=== PATIENT | female | born 1985 | race Caucasian/White ===

== ENCOUNTER 2018-12-30 16:47 | Inpatient (IN) | payer OTHER ==
[~2018-12-30] VITALS: Ht 165.1 cm; Wt 67.1 kg
--- NOTE | 2018-12-30 16:59 | NUR ---
, AMNA CALLED. [phone] IS HIS NUMBER TO CALL.
[2018-12-30 17:05] VITALS: BP 107/86
--- NOTE | 2018-12-30 17:05 | NUR ---
PT BIBA RA 102 From [facility] "Fever/tachycardia/nausea"Trach/vent dependent AC14 TV450 Peep8 28%, PT IS ALERT AND ORIENTED, HOOKED TO CARDIAC MOONITOR, RT AT [facility]ED [facility]IDE [facility], WILL CONTINUE TO MONITOR.
--- NOTE | 2018-12-30 17:08 | NUR ---
PICC LINE NURSE AT BEDSIDE.
[2018-12-30] MEDS ORDERED: BISA10SU8 RC (17:10)
[2018-12-30] MEDS ORDERED: ALBU2.5V38 IH (17:10)
[2018-12-30] MEDS ORDERED: FERR300L GT (17:10)
[2018-12-30] MEDS ORDERED: MIDO5TAB GT (17:10)
[2018-12-30] MEDS ORDERED: VIT500LI GT (17:10)
[2018-12-30] MEDS ORDERED: ONDA4TAB5 GT (17:10)
[2018-12-30] MEDS ORDERED: HYDR-3976 GT (17:10)
[2018-12-30] MEDS ORDERED: MULT-24 GT (17:10)
[2018-12-30] MEDS ORDERED: ACET650S26 GT (17:10)
[2018-12-30] MEDS ORDERED: SENN-168 GT (17:10)
[2018-12-30] MEDS ORDERED: MELA5TAB GT (17:10)
[2018-12-30] MEDS ORDERED: DOCU250C14 GT (17:10)
[2018-12-30] MEDS ORDERED: SERT50TA PO (17:10)
[2018-12-30] MEDS ORDERED: BUDE0.5A IH (17:10)
[2018-12-30] MEDS ORDERED: DULO20CA PO (17:10)
[2018-12-30] MEDS ORDERED: ESOM20CA GT (17:10)
[2018-12-30] MEDS ORDERED: ENOX40DI SQ (17:10)
[2018-12-30] MEDS ORDERED: NA P133E RC (17:10)
[2018-12-30] MEDS ORDERED: LACT-209 GT (17:10)
[2018-12-30] MEDS ORDERED: DULO30CA51 GT (17:10)
[2018-12-30] MEDS ORDERED: POLY17PO4 GT (17:10)
[2018-12-30] MEDS ORDERED: POLY15DR40 EACHEYE (17:10)
[2018-12-30] MEDS ORDERED: METH10TA2 GT (17:10)
[2018-12-30] MEDS ORDERED: LORA1TAB PO (17:10)
[2018-12-30] MEDS ORDERED: ZINC220C8 GT (17:10)
--- NOTE | 2018-12-30 17:10 | NUR ---
LABS DRAWNED AND SENT TO LAB.
[2018-12-30] MEDS ORDERED: ONDANSETRON HCL/PF 4 MG/2 ML VIAL ONE (17:18)
[2018-12-30] MEDS ORDERED: MORPHINE SULFATE INJ 4 MG/ML DISP.SYRIN ONE (17:18)
[2018-12-30 17:21] LABS: BASOPHILS # (AUTO) 0.1 /CMM (0.0-0.2); BASOPHILS % (AUTO) 0.5 % (0.0-2.0); HEMATOCRIT 30 % (33-45); HEMOGLOBIN 9.9 g/dL (11.5-14.8); LYMPHOCYTES # (AUTO) 1.3 /CMM (0.8-4.8); LYMPHOCYTES % (AUTO) 6.4 % (20.0-44.0); MEAN CORPUSCULAR HGB CONC 33 g/dl (31.0-36.0); MEAN CORPUSCULAR VOLUME 81 fL (82-100); MONOCYTES # (AUTO) 2.2 /CMM (0.1-1.30); MONOCYTES % (AUTO) 10.5 % (2.0-12.0); NEUTROPHILS # (AUTO) 17.2 /CMM (1.8-8.9); NEUTROPHILS % (AUTO) 82.6 % (43.0-81.0); PLATELET COUNT (AUTO) 513 /CMM (150-450); RED BLOOD CELL COUNT(AUTO) 3.72 MIL/uL (4.0-5.2); WHITE BLOOD COUNT (AUTO) 20.9 K/uL (4.3-11.0)
--- NOTE | 2018-12-30 17:22 | NUR ---
RT RECD PT FOR SEPSIS TRACHED INTACT AND SECURED WITH SHILEY 6 CUFFED ON THE [facility] VENT WITH VENT ORDERS OF AC 14 450 +8 28% ALARMS ON AND AUDIBLE BAG AND MASK AT [facility] VENT PLUGGED IN RED OUT SX THICK YELLOW SECRETIONS. WILL CONT TO MONITOR Addendum: 12/30/18 at 1728 by ULISSES ALEXANDRE RT Amended: Links added.
--- NOTE | 2018-12-30 17:28 | NUR ---
CRISIS WORKER AT BEDSIDE FOR XRAY.
[2018-12-30] MEDS ORDERED: IV NS 0.9% 1,000 ML BAG IV ONE (17:30)
[2018-12-30] MEDS ORDERED: ONDANSETRON HCL/PF 4 MG/2 ML VIAL IV ONE (17:30)
[2018-12-30] MEDS ORDERED: MORPHINE SULFATE INJ 2 MG/ML DISP.SYRIN IV ONE (17:30)
--- NOTE | 2018-12-30 17:40 | NUR ---
[facility] INTERN AT BEDSIDE FOR EVAL.
[2018-12-30 17:44] LABS: ALANINE AMINOTRANSFERASE 48 U/L (12-78); ALBUMIN 2.7 g/dL (3.4-5.0); ALKALINE PHOSPHATASE 276 U/L (46-116); ASPARTATE AMINOTRANSFERASE 31 U/L (15-37); BILIRUBIN,DIRECT 0.2 mg/dL (0.0-0.2); BILIRUBIN,TOTAL 0.5 mg/dL (0.2-1.0); CALCIUM, SERUM 9.1 mg/dL (8.5-10.1); CARBON DIOXIDE 23 mmol/L (21-32); CHLORIDE 95 mmol/L (98-107); CREATININE 5.8 mg/dL (0.6-1.3); GLUCOSE 111 mg/dL (74-106); SODIUM SERUM 135 mmol/L (136-145); TOTAL PROTEIN, SERUM 7.8 g/dL (6.4-8.2)
[2018-12-30 17:48] LABS: POTASSIUM 6.2 mmol/L (3.5-5.1)
[2018-12-30 17:49] LABS: UREA NITROGEN, BLOOD 109 mg/dL (7-18)
[2018-12-30] MEDS ORDERED: VANCOMYCIN 1 GM in IV D5W 250 ML IV STA (17:49)
[2018-12-30] MEDS ORDERED: CEFEPIME 1 GM in IV D5W 50 ML IV STA (17:49)
--- NOTE | 2018-12-30 17:55 | NUR ---
CERNA CATHETER INSERTED, URINE OUTPUT COLLECTED 1200ML, URINE SPECIMEN AND SENT TO LAB.
[2018-12-30 17:56] LABS: APPEARANCE,URINE Slightly Cloudy (CLEAR); BILIRUBIN,URINE Negative (NEGATIVE); BLOOD, URINE Moderate Ery/uL (NEGATIVE); COLOR,URINE Yellow (YELLOW); KETONES,URINE Negative (NEGATIVE); LEUKOCYTE ESTERASE ,URINE Small (NEGATIVE); NITRITE, URINE Negative (NEGATIVE); PROTEIN,URINE >=300 mg/dl (NEGATIVE); UGLUCOSE Negative (NEGATIVE); UROBILINOGEN,URINE 0.2 EU/dL (0.2)
[2018-12-30 18:00] LABS: PH,URINE >9.0 (5.0-8.0)
[2018-12-30] MEDS ORDERED: ALBUTEROL FS 2.5 MG/3 ML VIAL.NEB NEB ONE (18:00)
[2018-12-30] MEDS ORDERED: SODIUM BICARBONATE SYR 50 MEQ/50 ML DISP.SYRIN IV ONE (18:00)
[2018-12-30] MEDS ORDERED: INSULIN REGULAR, HUMAN 100 UNIT/ML 10 ML VIAL IV ONE (18:00)
[2018-12-30] MEDS ORDERED: CALCIUM CHLORIDE 1,000 MG/10 ML DISP.SYRIN IV ONE (18:00)
[2018-12-30] MEDS ORDERED: DEXTROSE 50%-WATER 50 ML DISP.SYRIN IV ONE (18:00)
[2018-12-30 18:03] LABS: BACTERIA,URINE Moderate /HPF (None Seen); SQUAMOUS EPITHELIAL CELL,UR Few /HPF (None Seen); TRIPLE PHOSPHATE CRYSTAL,UR Few /HPF (None Seen)
[2018-12-30] MEDS ORDERED: SODIUM BICARBONATE SYR 50 MEQ/50 ML DISP.SYRIN ONE (18:27)
[2018-12-30] MEDS ORDERED: DEXTROSE 50%-WATER 50 ML DISP.SYRIN ONE (18:28)
[2018-12-30] MEDS ORDERED: INSULIN REGULAR, HUMAN 100 UNIT/ML 10 ML VIAL ONE (18:28)
[2018-12-30] MEDS ORDERED: CALCIUM CHLORIDE 1,000 MG/10 ML DISP.SYRIN ONE (18:28)
--- NOTE | 2018-12-30 18:30 | NUR ---
PT IS WHEELED TO CT SCAN VIA ALS PROTOCOL.
--- NOTE | 2018-12-30 18:36 | NUR ---
CALLED HOUSE SUP FOR TELE BED
--- NOTE | 2018-12-30 18:41 | NUR ---
RT PT REFUSED BREATHING TX HR 138 DID NOT GIVE TX Addendum: 12/30/18 at 1842 by ULISSES ALEXANDRE RT NO RESP DISTRESS NOTED AND STATED BY PT
[2018-12-30 18:45] VITALS: BP 108/89
--- NOTE | 2018-12-30 18:47 | NUR ---
CALLED ELIANE TO HAVE IMAGE READ.
--- NOTE | 2018-12-30 19:32 | NUR ---
REPORT GIVEN TO STEPHANIA MOLINA FOR ROYA.
--- NOTE | 2018-12-30 20:01 | NUR ---
PT ASSIGNED TO RM [id number].
[2018-12-30 20:13] VITALS: BP 115/70
--- NOTE | 2018-12-30 20:46 | NUR ---
VENT SETTINGS: TV 450 PEEP 8 O2 30% RATE 12
--- NOTE | 2018-12-30 21:16 | NUR ---
REPORT GIVEN TO STEPHANIA DUMONT FOR ROYA
[2018-12-30] MEDS ORDERED: Z GUARD REMEDY 2 OZ OINT TP PRN (21:30)
[2018-12-30 21:40] VITALS: BP 137/91
[2018-12-30 21:47] VITALS: BP 103/85
[2018-12-30] MEDS ORDERED: POLYETHYLENE GLYCOL 3350 17 GM POWD.PACK GT PRN (22:00)
--- NOTE | 2018-12-30 22:00 | NUR ---
GRATING MACHINE OPERATOR NOTES, ALSO PATIENT WITH F/ IN PLACED DRAINING BY GRAVITY NOTED WITH HEMATURIA IN THE BAG, WILL CONTINUE TO MONITOR AND F/U WITH MD FOR FURTHER ORDERS.
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
[2018-12-30 22:21] LABS: IRON, SERUM 14 ug/dl (50-175); TOTAL IRON BINDING CAPACITY 159 ug/dl (250-450)
[2018-12-30] MEDS ORDERED: PIPERACILLIN /TAZOBACTAM 2.25 G VIAL IV ONE (22:22)
[2018-12-30] MEDS: PIPERACILLIN /TAZOBACTAM 2.25 G in IV D5W 50 ML IV SCH (22:27)
[2018-12-30] MEDS: IV NS 0.9% 1,000 ML IV PRN (22:27)
[2018-12-30] MEDS: SERTRALINE HCL 50 MG TABLET PO SCH (22:29)
[2018-12-30] MEDS: HEPARIN SODIUM, PORCINE 5000 UNITS/1 ML VIAL SQ SCH (22:30)
[2018-12-30] MEDS ORDERED: SORBITOL SOLUTION 30 ML ONE (22:52)
[2018-12-30] MEDS: SORBITOL SOLUTION 30 ML PO SCH (22:56)
[2018-12-31] MEDS ORDERED: PIPERACILLIN /TAZOBACTAM 3.375 G in IV D5W 50 ML IV SCH ×2
[2018-12-31 00:37] LABS: CALCIUM, SERUM 9.3 mg/dL (8.5-10.1); CREATININE 3.5 mg/dL (0.6-1.3); POTASSIUM 3.8 mmol/L (3.5-5.1)
--- NOTE | 2018-12-31 00:40 | NUR ---
RN NOTES, ENDORSED PATIENT IN STABLE CONDITION TO STEPHANIA CAST FOR CONTINUATION OF CARE.
--- NOTE | 2018-12-31 00:48 | NUR ---
CONVERTER OPERATOR NOTE RECEIVED MIDSHIFT REPORT FROM STEPHANIA DUMONT. PT IN STABLE CONDITION A&O X4, ABLE TO MOUTH WORDS. CURRENTLY RESTING IN BED.TELE MONITOR READING ST 105. CURRENTLY NPO. CERNA INTACT WITH ADEQUATE URINE DRAINING. ALL CURRENT NEEDS ATTENDED TO. BED LOW, LOCKED, UPPER RAILS UP, AND CALL LIGHT WITHIN REACH. WILL CONT TO MONITOR.
[2018-12-31] MEDS ORDERED: PIPERACILLIN /TAZOBACTAM 2.25 G VIAL IV ONE (04:10)
[2018-12-31] MEDS: IV NS 0.9% 1,000 ML IV PRN ×2 (04:32→17:07)
[2018-12-31] MEDS: PIPERACILLIN /TAZOBACTAM 2.25 G in IV D5W 50 ML IV SCH (04:38)
--- NOTE | 2018-12-31 06:35 | NUR ---
FUNERAL PLANNER NOTE PT IN STABLE CONDITION A&O X4, ABLE TO MOUTH WORDS. CURRENTLY AWAKE IN BED.TELE MONITOR READING ST 105. CURRENTLY NPO. CERNA INTACT WITH ADEQUATE URINE DRAINING. ALL CURRENT NEEDS ATTENDED TO. BED LOW, LOCKED, UPPER RAILS UP, AND CALL LIGHT WITHIN REACH. WILL CONT TO MONITOR AND ENDORSE TO NEXT SHIFT FOR ROYA.
[2018-12-31 06:43] LABS: BASOPHILS % (AUTO) 0.3 % (0.0-2.0); EOSINOPHILS % (AUTO) 0.2 % (0.0-6.0); HEMATOCRIT 23 % (33-45); HEMOGLOBIN 7.6 g/dL (11.5-14.8); LYMPHOCYTES # (AUTO) 1.4 /CMM (0.8-4.8); LYMPHOCYTES % (AUTO) 12.9 % (20.0-44.0); MEAN CORPUSCULAR HGB CONC 34 g/dl (31.0-36.0); MEAN CORPUSCULAR VOLUME 81 fL (82-100); MONOCYTES # (AUTO) 1.4 /CMM (0.1-1.30); MONOCYTES % (AUTO) 12.9 % (2.0-12.0); NEUTROPHILS # (AUTO) 8.1 /CMM (1.8-8.9); NEUTROPHILS % (AUTO) 73.7 % (43.0-81.0); PLATELET COUNT (AUTO) 380 /CMM (150-450); RED BLOOD CELL COUNT(AUTO) 2.81 MIL/uL (4.0-5.2); WHITE BLOOD COUNT (AUTO) 10.9 K/uL (4.3-11.0)
[2018-12-31 06:54] LABS: CALCIUM, SERUM 9.1 mg/dL (8.5-10.1); CREATININE 2.5 mg/dL (0.6-1.3); MAGNESIUM 2.4 mg/dL (1.8-2.4); PHOSPHORUS 5.6 mg/dL (2.5-4.9); POTASSIUM 3.4 mmol/L (3.5-5.1)
--- NOTE | 2018-12-31 07:20 | NUR ---
CERTIFIED MORTICIAN NOTE PT IN STABLE CONDITION A&O X4, ABLE TO MOUTH WORDS. CURRENTLY AWAKE IN BED.TELE MONITOR READING ST 105. CURRENTLY NPO. CERNA INTACT WITH ADEQUATE URINE DRAINING. ALL CURRENT NEEDS ATTENDED TO. BED LOW, LOCKED, UPPER RAILS UP, AND CALL LIGHT WITHIN REACH. WILL CONT TO MONITOR AND ENDORSE TO NEXT SHIFT FOR ROYA. Addendum: 12/31/18 at 1538 by CECI MARLEY RN ERROR
--- NOTE | 2018-12-31 07:25 | NUR ---
MFT OPENING NOTE RECEIVED REPORT FROM PM NURSE.PT IN STABLE CONDITION A&O X4, ABLE TO MOUTH WORDS. TELE MONITOR READING ST 103. NPO.ON IVF NS @125ML/HR. CERNA INTACT WITH YELLOW URINE DRAINING. ALL CURRENT NEEDS ATTENDED TO. BED LOW, LOCKED, UPPER RAILS UPX3, AND CALL LIGHT WITHIN REACH. BED ALARM ON.WILL CONT TO MONITOR .
[2018-12-31 08:00] VITALS: BP 90/52
--- NOTE | 2018-12-31 08:00 | NUR ---
RIGGER SUPERVISOR NOTE PATIENT C/O PAIN.PATIENT TOLD THAT NOT ALLERGIC TO TYLENOL.GAVE TYLENOL FOR PAIN.
[2018-12-31] MEDS ORDERED: FEE PK DOSING 1 MIN EA MC ONE (08:06)
[2018-12-31] MEDS: MULTIVITAMINS,THERAGRAN 1 UDTAB TABLET GT SCH (08:47)
[2018-12-31] MEDS: ACETAMINOPHEN 325 MG TABLET PO PRN ×3 (08:47→22:52)
[2018-12-31] MEDS: HEPARIN SODIUM, PORCINE 5000 UNITS/1 ML VIAL SQ SCH ×2 (08:47→21:12)
[2018-12-31] MEDS: ZINC SULFATE 220 MG CAPSULE GT SCH ×2 (08:47→17:07)
[2018-12-31] MEDS: DULOXETINE HCL 30 MG CAPSULE.DR GT SCH ×2 (08:47→21:13)
[2018-12-31] MEDS: FERROUS SULFATE UDC 300 MG/5 ML UDC GT SCH (08:47)
[2018-12-31] MEDS: SORBITOL SOLUTION 30 ML PO SCH (10:29)
[2018-12-31] MEDS: PIPERACILLIN /TAZOBACTAM 3.375 G in IV D5W 50 ML IV SCH ×3 (11:35→23:03)
[2018-12-31] MEDS: LACTULOSE 10 G/15 ML UDC (PYXIS) PO PRN ×2 (11:35→18:45)
[2018-12-31] MEDS: ONDANSETRON HCL/PF 4 MG/2 ML VIAL IVP PRN ×2 (11:43→22:59)
[2018-12-31 12:00] VITALS: BP 110/62
[2018-12-31] MEDS ORDERED: PIPERACILLIN /TAZOBACTAM 3.375 G in IV D5W 100 ML IV SCH (12:00)
[2018-12-31] MEDS: HYDROMORPHONE 1 MG/1 ML DISP.SYRIN IV PRN ×3 (12:26→21:32)
[2018-12-31] MEDS: VANCOMYCIN 500 MG in IV D5W 100 ML IV SCH (12:26)
[2018-12-31] MEDS: POTASSIUM CL. PREMIX PERIPHER. 50 ML IV SCH ×2 (12:27→13:35)
--- NOTE | 2018-12-31 14:00 | NUR ---
STUCCO LABORER NOTE SEEN BY LILY MELÉNDEZ,UPDATED ABOUT PATIENT CONDITION WITH LABS.GOT NEW ORDERS.PRN LACTULOSE Q6H UNTIL SHE HAS GOOD BM.GOT NEW ORDER FOR PAIN MEDICATIONS.WILL CONTINUE TO MONITOR.
[2018-12-31 16:00] VITALS: BP 111/61
--- NOTE | 2018-12-31 18:20 | NUR ---
RT Patient received trach'd and on [facility] vent w ordered settings. Alarms are set and audible. Vent is plugged into red outlet w [facility] @ hob. Pt trach is secure and patent. Missileman done and pt sx'd w no adverse reactions. No respiratory distress noted t/o shift. Will continue to monitor. Addendum: 12/31/18 at 1820 by LILO OLMOS RT Amended: Links added.
--- NOTE | 2018-12-31 19:00 | NUR ---
FINANCIAL REPORTING ADVISOR CLOSING NOTE PT IN BED.A&O X4, ABLE TO MOUTH WORDS. TELE MONITOR READING ST 110. NPO.ON IVF NS @125ML/HR. CERNA INTACT WITH YELLOW CLOUDY URINE DRAINING. ALL CURRENT NEEDS ATTENDED . BED LOW, LOCKED, UPPER RAILS UPX3, AND CALL LIGHT WITHIN REACH.PATIENT ON CONTACT ISOLATION FOR MRSA NARES. LILY MELÉNDEZ MADE AWARE.TEMP 102.7.LILY MELÉNDEZ MADE AWARE.BED ALARM ON.WILL ENDORSE TO PM NURSE FOR ROYA.
--- NOTE | 2018-12-31 19:10 | NUR ---
SHIPPING & RECEIVING LEAD NOTE RECEIVED PT RESTING IN BED AOX3, MOUTHS WORDS, WITH HOB ELEVATED, TRACH TO VENT ON SETTINGS ORDERED, ON TELE ST, F/C DRAINING TO GRAVITY YELLOW URINE, G TUBE SITE CLAMPED, NPO WILL CONT TO MONITOR FOR BM, SKIN KEPT CLEAN AND DRY, PIERRE MIDLINE PATENT FLUSHING WELL WITH NS AT 125 ML/HR, SITE CLEAN AND DRY, SAFETY MAINTAINED AT ALL TIMES, BED IN LOW, LOCKED POSITION, CALL LIGHT WITHIN REACH, WILL CONTINUE TO MONITOR FOR ANY CHANGES.
[2018-12-31] MEDS: ZOLPIDEM TARTRATE 5 MG TABLET PO PRN (19:57)
[2018-12-31 20:00] VITALS: BP 115/71
[2018-12-31] MEDS: SERTRALINE HCL 50 MG TABLET PO SCH (21:13)
[2018-12-31] MEDS: MUPIROCIN OINT 2% 22 GM TUBE SCH (21:14)
--- NOTE | 2018-12-31 21:42 | NUR ---
RECEIVED PT TRACHED SHLY 6, AWAKE AND ALERT. NO RESP DISTRESS. VENT SETTINGS AC 14, 450, 30%, +8. VENT ALARMS SET AND AUDIBLE. AMBU BAG AT BEDSIDE. VENT PLUGGED INTO RED OUTLET. WILL CONTINUE TO MONITOR. Addendum: 12/31/18 at 2145 by VAZQUEZ TANG RT Amended: Links added.
[2019-01-01] VITALS (7 sets, daily range): BP systolic 110–145; BP diastolic 71–85
[2019-01-01] MEDS: HYDROMORPHONE 1 MG/1 ML DISP.SYRIN IV PRN ×5 (01:50→20:59)
[2019-01-01] MEDS: IV NS 0.9% 1,000 ML IV PRN (01:58)
[2019-01-01] MEDS: PIPERACILLIN /TAZOBACTAM 3.375 G in IV D5W 50 ML IV SCH ×4 (05:01→23:25)
[2019-01-01] MEDS: LACTULOSE 10 G/15 ML UDC (PYXIS) PO PRN (05:01)
[2019-01-01 06:02] LABS: CALCIUM, SERUM 8.9 mg/dL (8.5-10.1); CREATININE 0.8 mg/dL (0.6-1.3); POTASSIUM 3.2 mmol/L (3.5-5.1)
[2019-01-01] MEDS: VANCOMYCIN 500 MG in IV D5W 100 ML IV SCH ×2 (06:15→18:02)
--- NOTE | 2019-01-01 07:30 | NUR ---
RN NOTED RECEIVED PATIENT IN BED, AWAKE, ABLE TO MAKE NEEDS KNOWN BY MOUTHING WORDS. VENT TO TRACH, NO SOB AND TOLERATES VENT SETTING ORDERED, SATURATING 98%. HOB ELEVATED. SINUS RHYTHM ON THE MONITOR WITH HR ON THE 90'S. NO COMPLAINTS OF PAIN BUT WITH COMPLAINTS OF NAUSEA- WILL ADMINISTER DUE MEDICATION. ABDOMEN ON SOFT AND NONTENDER. IVC ACCES ON THE (R) UA: MIDLINE-INTACT AND PATENT WITH DRESSING IN PLACE,CLEAN AND DRY. WITH ONGOING IVF OF NS AT 125ML/HR. GT IN PLACE, PLACEMENT CONFIRMED THROUGH AUSCULTATION, CLAMPED AT THIS TIME. SITE CLEAN AND DRY. CERNA CATHETER IN PLACED DRAINING VIA GRAVITY TO YELLOW URINE, SEDIMENTS NOTED. HOB KEPT ELEVATED, SAFETY MEASURES OBSERVED AND MAINTAINED. BED IN LOW AND LOCKED POSITIONED. CALL LIGHT WITHIN REACH. ISOLATION PRECAUTION IMPLEMENTED.WILL CONTINUE TO MONITOR AND ANTICIPATE NEEDS.
--- NOTE | 2019-01-01 08:41 | NUR ---
WOUND CARE CONSULT: PT PRESENTS WITH LEFT POSTERIOR ANKLE INTACT DEEP TISSUE INJURY (BROWN COLOR), PRESENT ON ADMISSION. PT REFUSED TO BE TURNED FOR FULL SKIN ASSESSMENT. PER ADMISSION PHOTO DOCUMENTATION AND SURGEON, PT HAS STAGE 4 SACRAL ULCER, PRESENT ON ADMISSION. ORDERS RECEIVED FROM DR GIOVANNI LOPEZ FOR WOUND CARE AND DISCUSSED WITH NURSING STAFF. WILL SEE PRN. ACOSTA IN AGREEMENT WITH PLAN OF CARE. PT ON ELIZABETH ISOFLEX LOW AIRLOSS BED. NO G TUBE FEEDINGS YET DUE TO PT NAUSEA AND CONSTIPATION ISSUES PER NURSING STAFF. RECOMMEND DIETARY FOLLOW UP. Addendum: 01/01/19 at 0843 by MIKEL CLARK WNDNU Amended: Links added.
[2019-01-01] MEDS: ONDANSETRON HCL/PF 4 MG/2 ML VIAL IVP PRN (08:53)
[2019-01-01] MEDS: FERROUS SULFATE UDC 300 MG/5 ML UDC GT SCH (09:07)
[2019-01-01] MEDS: ZINC SULFATE 220 MG CAPSULE GT SCH ×2 (09:07→16:55)
[2019-01-01] MEDS: DULOXETINE HCL 30 MG CAPSULE.DR GT SCH ×2 (09:07→20:59)
[2019-01-01] MEDS: MULTIVITAMINS,THERAGRAN 1 UDTAB TABLET GT SCH (09:07)
[2019-01-01] MEDS: MUPIROCIN OINT 2% 22 GM TUBE SCH ×2 (09:08→21:00)
[2019-01-01] MEDS: SORBITOL SOLUTION 30 ML PO SCH (09:08)
[2019-01-01] MEDS: DAKINS QUARTER STRENGTH (0.125%) 480 ML BOTTLE TOP SCH (09:09)
[2019-01-01] MEDS: HEPARIN SODIUM, PORCINE 5000 UNITS/1 ML VIAL SQ SCH ×2 (09:10→20:59)
[2019-01-01] MEDS ORDERED: POTASSIUM CHLORIDE 20 MEQ TAB.PRT.SR PO SCH (11:00)
[2019-01-01] MEDS: POTASSIUM CL. PREMIX PERIPHER. 50 ML IV SCH ×4 (11:33→15:31)
[2019-01-01] MEDS ORDERED: IV 1/2NS 1000 ML 1,000 ML IV PRN (13:00)
[2019-01-01] MEDS ORDERED: SILVER NITRATE APPLICATOR 1 EA BOX TP ONE (16:30)
[2019-01-01] MEDS: LACTOBACILLUS RHAMNOSUS GG 1 EACH CAP.SPRINK PO SCH (16:55)
--- NOTE | 2019-01-01 17:40 | NUR ---
RN NOTES S/P WOUND DEBRIDEMENT, SITE WITH MILD BLEEDING. DRESSING APPLIED. WILL MONITOR PATIENT ACCCORDINGLY
--- NOTE | 2019-01-01 19:10 | NUR ---
RN NOTES ENDORSED PATIENT FOR CONTINUITY OF CARE. NO ACUTE CHANGES WITHIN THE SHIFT. NOT ON ANY FORM OF DISTRESS. ALL NURSING NEEDS ATTENDED. SAFETY MEASURES IN PLACE AT ALL TIMES. CALL LIGHT WITHIN REACH. ISOLATION PRECAUTION IMPLEMENTED AT ALL TIMES
--- NOTE | 2019-01-01 19:10 | NUR ---
LOGISTICS ANALYTICS MANAGER NOTE RECEIVED PT RESTING WITH HEAD OF THE BED ELEVATED, AOX3, MOUTHS WORDS, TRACH TO VENT ON SETTINGS ORDERED, ON TELE ST, NO S/SX OF RESPIRATORY OR CARDIAC DISTRESS, F/C DRAINING TO GRAVITY CLOUDY YELLOW URINE, G TUBE SITE CLAMPED, NPO WILL CONT TO MONITOR FOR BM, SKIN KEPT CLEAN AND DRY, PIERRE MIDLINE PATENT FLUSHING WELL WITH 1/2NS AT 125 ML/HR, SITE CLEAN AND DRY, SAFETY MAINTAINED AT ALL TIMES, BED IN LOW, LOCKED POSITION, CALL LIGHT WITHIN REACH, WILL CONTINUE TO MONITOR FOR ANY CHANGES.
[2019-01-01] MEDS: SERTRALINE HCL 50 MG TABLET PO SCH (21:00)
[2019-01-02] VITALS (8 sets, daily range): BP systolic 122–146; BP diastolic 79–93
[2019-01-02] MEDS: HYDROMORPHONE 1 MG/1 ML DISP.SYRIN IV PRN ×5 (01:05→20:56)
[2019-01-02] MEDS: PIPERACILLIN /TAZOBACTAM 3.375 G in IV D5W 50 ML IV SCH ×3 (05:05→17:03)
[2019-01-02] MEDS: VANCOMYCIN 500 MG in IV D5W 100 ML IV SCH (06:13)
[2019-01-02 06:40] LABS: CALCIUM, SERUM 8.9 mg/dL (8.5-10.1); CREATININE 0.5 mg/dL (0.6-1.3); POTASSIUM 3.3 mmol/L (3.5-5.1)
--- NOTE | 2019-01-02 07:30 | NUR ---
RN NOTED RECEIVED PATIENT IN BED, ASLEEP, AROUSES TO VERBAL STIMULI, ABLE TO MAKE NEEDS KNOWN BY MOUTHING WORDS.TRACH TO VENT, NO SOB AND TOLERATES VENT SETTING ORDERED, SATURATING 98%. HOB ELEVATED. SINUS RHYTHM ON THE MONITOR WITH HR ON THE 90'S. NO SIGNS/ INDICATION OF PAIN NOTED AT THIS TIME. ABDOMEN ON SOFT AND NONTENDER. IV ACCES ON THE (R) UA: MIDLINE-INTACT AND PATENT WITH DRESSING IN PLACE,CLEAN AND DRY. WITH ONGOING IVF OF 1/2 NS AT 125ML/HR. GT IN PLACE, PLACEMENT CONFIRMED THROUGH AUSCULTATION, CLAMPED AT THIS TIME. SITE CLEAN AND DRY. CERNA CATHETER IN PLACED DRAINING VIA GRAVITY TO YELLOW URINE, SEDIMENTS NOTED. HOB KEPT ELEVATED, SAFETY MEASURES OBSERVED AND MAINTAINED. BED IN LOW AND LOCKED POSITIONED. CALL LIGHT WITHIN REACH. ISOLATION PRECAUTION IMPLEMENTED.WILL CONTINUE TO MONITOR AND ANTICIPATE NEEDS.
[2019-01-02] MEDS: SORBITOL SOLUTION 30 ML PO SCH (08:37)
[2019-01-02] MEDS: HEPARIN SODIUM, PORCINE 5000 UNITS/1 ML VIAL SQ SCH ×2 (08:37→20:57)
[2019-01-02] MEDS: DULOXETINE HCL 30 MG CAPSULE.DR GT SCH ×2 (08:38→20:55)
[2019-01-02] MEDS: MULTIVITAMINS,THERAGRAN 1 UDTAB TABLET GT SCH (08:38)
[2019-01-02] MEDS: ZINC SULFATE 220 MG CAPSULE GT SCH ×2 (08:38→17:03)
[2019-01-02] MEDS: FERROUS SULFATE UDC 300 MG/5 ML UDC GT SCH (08:38)
[2019-01-02] MEDS: LACTOBACILLUS RHAMNOSUS GG 1 EACH CAP.SPRINK PO SCH ×2 (08:39→17:03)
[2019-01-02] MEDS: MUPIROCIN OINT 2% 22 GM TUBE SCH ×2 (08:42→20:58)
[2019-01-02] MEDS ORDERED: JEVITY 1.2 CAL 1,000 ML BOTTLE GT PRN (09:00)
[2019-01-02] MEDS: DAKINS QUARTER STRENGTH (0.125%) 480 ML BOTTLE TOP SCH (09:13)
--- NOTE | 2019-01-02 11:26 | NUR ---
RN NOTES INFORMED DR. DAVILA ON A.) PATIENT LATEST SODIUM AT 152 AND IF HE IS CONTINUING THE 1/2 NS AT 125CC/HR AND B.) POTASSIUM LEVEL AT 3.3 AND IF HE'S ORDERING REPLACEMENT. AWAITING RESPONSE
[2019-01-02] MEDS ORDERED: POTASSIUM CHLORIDE 20 MEQ POWDER PACKET GT SCH (11:30)
--- NOTE | 2019-01-02 12:00 | NUR ---
RN NOTES PATIENT FEVERISH AT THIS TIME, REFUSE COOLING MEASURES AND CLAIMS TO BE COLD.
--- NOTE | 2019-01-02 12:22 | NUR ---
RN NOTES OBTAINED DIET RECOMMENDATIONS FROM DR ROSS INFORMED AND PERMITTED SUCH ORDERS. ORDER NOTED AND CARRIED OUT
--- NOTE | 2019-01-02 18:16 | NUR ---
RT RECD PT TRACH'D INTACT & SECURED ON MECH VENT SUDARSHAN ORDERED SETTINGS ALARMS ON & AUDIBLE BAG AND MASK AT HOB SX THICK PALE YELLOW SECRETIONS NO SOB WILL CONT TO MONITOR
[2019-01-02] MEDS ORDERED: VANCOMYCIN 0.75 GM in IV D5W 250 ML IV SCH (20:00)
--- NOTE | 2019-01-02 20:00 | NUR ---
TIFFANI RN NOTE RECEIVED PATIENT IN BED, AWAKE, ABLE TO MAKE NEEDS KNOWN BY MOUTHING WORDS. VENT TO TRACH, NO SOB AND TOLERATES VENT SETTING WELL, SATURATING 99%. HOB ELEVATED. SINUS RHYTHM ON THE MONITOR WITH HR 90'S. PATIENT COMPLAINTS OF PAIN 10 WILL ADMINISTER DUE MEDICATION. ABDOMEN SOFT AND NONTENDER. IVC ACCES ON THE (R) UA: MIDLINE-INTACT AND PATENT WITH DRESSING IN PLACE,CLEAN AND DRY. GT IN PLACE, PLACEMENT CONFIRMED BY AUSCULTATION WITH GTF ORDERED. SITE CLEAN AND DRY. CERNA CATHETER IN PLACED DRAINING VIA GRAVITY TO DARK YELLOW URINE, SEDIMENTS NOTED. HOB KEPT ELEVATED, SAFETY MEASURES OBSERVED AND MAINTAINED. BED IN LOW AND LOCKED POSITIONED. CALL LIGHT WITHIN REACH. ISOLATION PRECAUTION IMPLEMENTED.WILL CONTINUE TO MONITOR AND ANTICIPATE NEEDS.
[2019-01-02] MEDS: VANCOMYCIN 1 GM in IV D5W 250 ML IV SCH (20:54)
[2019-01-02] MEDS: ACETAMINOPHEN 325 MG TABLET PO PRN (20:55)
[2019-01-02] MEDS ORDERED: MUPIROCIN OINT 2% 22 GM TUBE SCH (21:00)
[2019-01-02] MEDS: SERTRALINE HCL 50 MG TABLET PO SCH (22:30)
[2019-01-03] VITALS: BP 136/94
[2019-01-03] MEDS: PIPERACILLIN /TAZOBACTAM 3.375 G in IV D5W 50 ML IV SCH ×4 (00:40→17:45)
[2019-01-03 04:00] VITALS: BP 144/95
[2019-01-03] MEDS: JEVITY 1.2 CAL 1,000 ML BOTTLE GT PRN (04:28)
[2019-01-03] MEDS: HYDROMORPHONE 1 MG/1 ML DISP.SYRIN IV PRN ×3 (05:33→17:45)
[2019-01-03 07:17] LABS: BASOPHILS % (AUTO) 0.4 % (0.0-2.0); EOSINOPHILS % (AUTO) 1.1 % (0.0-6.0); HEMATOCRIT 24 % (33-45); HEMOGLOBIN 7.8 g/dL (11.5-14.8); LYMPHOCYTES # (AUTO) 1.9 /CMM (0.8-4.8); LYMPHOCYTES % (AUTO) 16.6 % (20.0-44.0); MEAN CORPUSCULAR HGB CONC 33 g/dl (31.0-36.0); MEAN CORPUSCULAR VOLUME 81 fL (82-100); MONOCYTES # (AUTO) 0.8 /CMM (0.1-1.30); MONOCYTES % (AUTO) 7.6 % (2.0-12.0); NEUTROPHILS # (AUTO) 8.3 /CMM (1.8-8.9); NEUTROPHILS % (AUTO) 74.3 % (43.0-81.0); PLATELET COUNT (AUTO) 430 /CMM (150-450); RED BLOOD CELL COUNT(AUTO) 2.96 MIL/uL (4.0-5.2); WHITE BLOOD COUNT (AUTO) 11.2 K/uL (4.3-11.0)
[2019-01-03 07:45] LABS: ALBUMIN 2.2 g/dL (3.4-5.0); BILIRUBIN,TOTAL 0.3 mg/dL (0.2-1.0); CALCIUM, SERUM 8.1 mg/dL (8.5-10.1); CREATININE 0.4 mg/dL (0.6-1.3); MAGNESIUM 1.4 mg/dL (1.8-2.4); PHOSPHORUS 1.7 mg/dL (2.5-4.9); TOTAL PROTEIN, SERUM 6.1 g/dL (6.4-8.2)
--- NOTE | 2019-01-03 07:45 | NUR ---
TIFFANI RN NOTE RECEIVED PATIENT IN BED, AWAKE, ABLE TO MAKE NEEDS KNOWN BY MOUTHING WORDS WITH TRACH. TO VENT SETTING , NO SOB AND TOLERATES VENT SETTING WELL, SATURATING 99%. HOB ELEVATED. SINUS RHYTHM ON THE MONITOR WITH SR HR 71 . ABDOMEN SOFT AND NONTENDER. IVC ACCES ON THE (R) UA: MIDLINE-INTACT AND PATENT WITH DRESSING IN PLACE,CLEAN AND DRY. GT IN PLACE, PLACEMENT CONFIRMED BY AUSCULTATION WITH GTF ORDERED. NO RESIDUAL NOTED SITE CLEAN AND DRY. CERNA CATHETER IN PLACED DRAINING VIA GRAVITY WITH YELLOW URINE, SEDIMENTS NOTED. HOB KEPT ELEVATED, SAFETY MEASURES OBSERVED AND MAINTAINED. BED IN LOW AND LOCKED POSITIONED. CALL LIGHT WITHIN REACH. ISOLATION PRECAUTION IMPLEMENTED.WILL CONTINUE TO MONITOR AND ANTICIPATE NEEDS.
[2019-01-03 07:50] LABS: POTASSIUM 2.7 mmol/L (3.5-5.1)
[2019-01-03 08:00] VITALS: BP 136/94
[2019-01-03] MEDS: VANCOMYCIN 1 GM in IV D5W 250 ML IV SCH ×2 (08:11→20:59)
[2019-01-03] MEDS: FERROUS SULFATE UDC 300 MG/5 ML UDC GT SCH (08:20)
[2019-01-03] MEDS: DULOXETINE HCL 30 MG CAPSULE.DR GT SCH ×2 (08:20→20:59)
[2019-01-03] MEDS: MULTIVITAMINS,THERAGRAN 1 UDTAB TABLET GT SCH (08:20)
[2019-01-03] MEDS: LACTOBACILLUS RHAMNOSUS GG 1 EACH CAP.SPRINK PO SCH ×2 (08:20→17:44)
[2019-01-03] MEDS: ZINC SULFATE 220 MG CAPSULE GT SCH ×2 (08:20→17:44)
[2019-01-03] MEDS: SORBITOL SOLUTION 30 ML PO SCH (08:21)
[2019-01-03] MEDS: HEPARIN SODIUM, PORCINE 5000 UNITS/1 ML VIAL SQ SCH ×2 (08:22→21:45)
[2019-01-03] MEDS: DAKINS QUARTER STRENGTH (0.125%) 480 ML BOTTLE TOP SCH (08:23)
[2019-01-03] MEDS: MUPIROCIN OINT 2% 22 GM TUBE SCH ×2 (08:32→09:00)
[2019-01-03] MEDS ORDERED: POTASSIUM CHLORIDE 20 MEQ TAB.PRT.SR PO ONE (09:00)
[2019-01-03] MEDS: Magnesium 1GM/D5W 100ML PREMIX 100 ML IV SCH ×2 (09:17→10:18)
--- NOTE | 2019-01-03 09:23 | NUR ---
PLODDING MACHINE OPERATOR NOTE SPOKE WITH DR BARRERA OK TO GIVE SORBITOL VIA G TUBE, ALSO DR BARRERA AWARE THAT K 2.7
[2019-01-03 09:55] LABS: BAND % (MANUAL) 2 % (0.0-5.0); LYMPHOCYTES % (MANUAL) 21 % (16-48); MONOCYTES % (MANUAL) 10 % (0-11.0); MYELOCYTES % 3 % (0-0); NEUTROPHILS % (MANUAL) 64 (42-76)
[2019-01-03] MEDS ORDERED: POTASSIUM PHOSPHATE MM 5 MMOL in IV D5W 100 ML IV ONE (10:00)
[2019-01-03 12:00] VITALS: BP 124/92
--- NOTE | 2019-01-03 12:30 | NUR ---
CAR AND YARD SUPERVISOR NOTE OFFERED TO BE CLEAN, PATIENT STATED FEEL COMFORTABLE FOR NOW ,NO NEED AT THIS TIME, TURIN REPOSITION DONE Q2 HOUR
--- NOTE | 2019-01-03 14:53 | NUR ---
TELE R N NOTE OFFERED TO CLEAN ,STILL REFUSED, FACE CLEANED, ORAL CARE DONE ,TRACH SUCTION DONE REPOSITION DONE WILL CONT TO MONITOR CLOSELY
--- NOTE | 2019-01-03 14:55 | NUR ---
TELERN NOTE ENDORSED CARE TO KOMAL CAT
[2019-01-03 16:00] VITALS: BP 124/90
--- NOTE | 2019-01-03 18:55 | NUR ---
RN CLOSING NOTES PATIENT IN BED SLEEPING COMFORTABLY. EASILY AROUSABLE. PT IS ALERT AND ORIENTED X3. ABLE TO MAKE NEEDS KNOWN. PATIENT COMPLAINED OF PAIN OF 10/10. DILAUDID WAS GIVEN ORDERED. RESPIRATION EVEN AND UNLABORED. SKIN IS DRY WARM TO TOUCH. TX WAS DONE WELL ON THE STAGE 4 WOUND ON SACRAL AREA. MID LINE ON RIGHT UPPER ARM INTACT AND PATENT. FLUSHING WELL. GT IS INTACT AND FLUSHING WELL. NO RESIDUALS. HOB ELEVATED AT ALL TIMES. ALL NEEDS ANTICIPATED. KEPT CLEAN AND DRY. CALL LIGHT WITHIN REACHED. BED LOCKED AND IN LOW POSITION. WILL CONTINUE TO MONITOR. ENDORSED TO PM NURSE FOR ROYA.
--- NOTE | 2019-01-03 19:17 | NUR ---
RT NOTE: RECEIVED TRACH PT ON [facility] VENT ON NOTED SETTINGS PER MD ORDERS. TRACH IS PATENT AND SECURED. RECRUITING OPERATIONS CONSULTANT DONE. SX DONE PRN. VENT PLUGGED INTO RED OUTLET. ALARMS ON AND AUDIBLE. LINH THOMAS @ BEDSIDE. NO RESP DISTRESS AT THIS TIME. WILL CONT TO MONITOR PT. Addendum: 01/04/19 at 0553 by GEO GAMINO RT Amended: Links added.
[2019-01-03 20:00] VITALS: BP 122/85
--- NOTE | 2019-01-03 20:29 | NUR ---
SAFETY FIRE BOSS INITIAL NOTE RECEIVED PATIENT IN BED, AWAKE, ABLE TO MAKE NEEDS KNOWN BY MOUTHING WORDS WITH TRACH. TO VENT SETTING , NO SOB AND TOLERATES VENT SETTING WELL, SATURATING 99%. HOB ELEVATED. SINUS RHYTHM ON THE MONITOR WITH SR HR 65 . ABDOMEN SOFT AND NONTENDER. IVC ACCES ON THE (R) UA: MIDLINE-INTACT AND PATENT WITH DRESSING IN PLACE,CLEAN AND DRY. GT IN PLACE, PLACEMENT CONFIRMED BY AUSCULTATION WITH GTF ORDERED. NO RESIDUAL NOTED SITE CLEAN AND DRY. CERNA CATHETER IN PLACED DRAINING VIA GRAVITY WITH YELLOW URINE, SEDIMENTS NOTED. HOB KEPT
[2019-01-03] MEDS: SERTRALINE HCL 50 MG TABLET PO SCH (21:44)
[2019-01-03] MEDS: ZOLPIDEM TARTRATE 5 MG TABLET PO PRN (21:52)
[2019-01-03] MEDS: CEFEPIME 1 GM in IV D5W 50 ML IV SCH (22:56)
[2019-01-04] VITALS (7 sets, daily range): BP systolic 115–145; BP diastolic 83–99
[2019-01-04] MEDS: JEVITY 1.2 CAL 1,000 ML BOTTLE GT PRN ×2 (04:45→21:33)
[2019-01-04] MEDS: HYDROMORPHONE 1 MG/1 ML DISP.SYRIN IV PRN ×4 (04:45→20:52)
--- NOTE | 2019-01-04 06:10 | NUR ---
TRUCK BRACER CLOSING NOTE ENDORSED PATIENT IN BED, AWAKE, ABLE TO MAKE NEEDS KNOWN BY MOUTHING WORDS WITH TRACH. TO VENT SETTING , NO SOB AND TOLERATES VENT SETTING WELL, SATURATING 99%. HOB ELEVATED. SINUS RHYTHM ON THE MONITOR WITH SR HR 87 . ABDOMEN SOFT AND NONTENDER. IVC ACCES ON THE (R) UA: MIDLINE-INTACT AND PATENT WITH DRESSING IN PLACE,CLEAN AND DRY. GT IN PLACE, PLACEMENT CONFIRMED BY AUSCULTATION WITH GTF ORDERED. NO RESIDUAL NOTED SITE CLEAN AND DRY, PT REFUSED TO BE CHANGED. CERNA CATHETER IN PLACED DRAINING VIA GRAVITY WITH YELLOW URINE, SEDIMENTS NOTED. HOB KEPT
[2019-01-04 06:48] LABS: CREATININE 0.4 mg/dL (0.6-1.3); POTASSIUM 3.5 mmol/L (3.5-5.1)
--- NOTE | 2019-01-04 07:50 | NUR ---
DARKROOM WORKER: pt.is A/Ox3, rest, can communicate, no pain now, no SOB, O2sat. over 95%, FiO2 305, peep 8, on AC mode, no SOB, suctioned well x2, SR, SBP over 90, will reach goal GTF 65ml/h, residual WNL, keep HOB over 40, had BM yesterday by comp.data, surgreon consult, debridement done
[2019-01-04] MEDS: FERROUS SULFATE UDC 300 MG/5 ML UDC GT SCH (09:03)
[2019-01-04] MEDS: DULOXETINE HCL 30 MG CAPSULE.DR GT SCH ×2 (09:03→20:51)
[2019-01-04] MEDS: MULTIVITAMINS,THERAGRAN 1 UDTAB TABLET GT SCH (09:03)
[2019-01-04] MEDS: ZINC SULFATE 220 MG CAPSULE GT SCH ×2 (09:03→17:03)
[2019-01-04] MEDS: LACTOBACILLUS RHAMNOSUS GG 1 EACH CAP.SPRINK PO SCH ×2 (09:03→17:03)
[2019-01-04] MEDS: HEPARIN SODIUM, PORCINE 5000 UNITS/1 ML VIAL SQ SCH ×2 (09:03→20:51)
[2019-01-04] MEDS: VANCOMYCIN 1 GM in IV D5W 250 ML IV SCH ×2 (09:04→20:32)
[2019-01-04] MEDS: DAKINS QUARTER STRENGTH (0.125%) 480 ML BOTTLE TOP SCH (09:05)
[2019-01-04] MEDS: SORBITOL SOLUTION 30 ML GT SCH (09:05)
[2019-01-04] MEDS: MUPIROCIN OINT 2% 22 GM TUBE SCH ×2 (09:06→21:32)
[2019-01-04] MEDS: CEFEPIME 1 GM in IV D5W 50 ML IV SCH ×2 (09:10→22:50)
[2019-01-04 10:27] LABS: ALBUMIN 2.4 g/dL (3.4-5.0); BILIRUBIN,TOTAL 0.2 mg/dL (0.2-1.0); CALCIUM, SERUM 8.3 mg/dL (8.5-10.1); CREATININE 0.4 mg/dL (0.6-1.3); MAGNESIUM 1.7 mg/dL (1.8-2.4); PHOSPHORUS 2.2 mg/dL (2.5-4.9); POTASSIUM 3.7 mmol/L (3.5-5.1); TOTAL PROTEIN, SERUM 6.2 g/dL (6.4-8.2)
[2019-01-04 10:35] LABS: BASOPHILS # (AUTO) 0.1 /CMM (0.0-0.2); BASOPHILS % (AUTO) 0.7 % (0.0-2.0); EOSINOPHILS % (AUTO) 4.2 % (0.0-6.0); HEMATOCRIT 26 % (33-45); HEMOGLOBIN 8.3 g/dL (11.5-14.8); LYMPHOCYTES # (AUTO) 2.8 /CMM (0.8-4.8); LYMPHOCYTES % (AUTO) 21.7 % (20.0-44.0); MEAN CORPUSCULAR HGB CONC 32 g/dl (31.0-36.0); MEAN CORPUSCULAR VOLUME 83 fL (82-100); MONOCYTES # (AUTO) 0.9 /CMM (0.1-1.30); MONOCYTES % (AUTO) 6.9 % (2.0-12.0); NEUTROPHILS # (AUTO) 8.7 /CMM (1.8-8.9); NEUTROPHILS % (AUTO) 66.5 % (43.0-81.0); PLATELET COUNT (AUTO) 514 /CMM (150-450); RED BLOOD CELL COUNT(AUTO) 3.18 MIL/uL (4.0-5.2)
--- NOTE | 2019-01-04 10:47 | NUR ---
SANITARIAN AIDE: pt.c/o shoulders, back pain 03/30, Dilaudid in EMAR+, suctioned well, repositioned q2h
[2019-01-04] MEDS ORDERED: K PHOS NEUTRAL 250 MG TABLET PO ONE (12:00)
[2019-01-04] MEDS ORDERED: K PHOS NEUTRAL 250 MG TABLET GT ONE (12:00)
[2019-01-04 12:04] LABS: BAND % (MANUAL) 4 % (0.0-5.0); EOSINOPHILS % (MANUAL) 4 % (0-4); LYMPHOCYTES % (MANUAL) 23 % (16-48); MONOCYTES % (MANUAL) 7 % (0-11.0); MYELOCYTES % 2 % (0-0); NEUTROPHILS % (MANUAL) 57 (42-76); REACTIVE LYMPHOCYTES 3 % (0-0)
--- NOTE | 2019-01-04 14:00 | NUR ---
RN TIFFANI: pt is rest, no c/o now, no pain, VSS, suctioned well, turned q2h, O2sat. over 96%, GTF residual WNL, pt. called with bad phone connection, call was unable to hear his voice well, said: can hear nurse and got report re pt.current condition, VS, POC, orders, recommended to call back, pt.is notified re call
--- NOTE | 2019-01-04 16:47 | NUR ---
UTILITY MANAGER: pt.is A/Ox3, no c/o now, no pain, O2sat. over 96%, suctioned q1-2hrs, SR, SBP over 90 below 150, GTF residual WNL, BMx1, all PM,skin,wound care done, portable vent from SNF is in room, RT is aware, sent message for case filler
--- NOTE | 2019-01-04 18:12 | NUR ---
RT NOTE PT REMAINS MECHANICALLY VENTILATED VIA SHILEY 6 CUFFED TRACHEOSTOMY TUBE. CUFF INFLATED. TRACH TUBE MIDLINE AND SECURE. VENTILATOR SETTINGS PRESCRIBED. ALARMS SET PER PROTOCOL AND AUDIBLE. VENT PLUGGED IN TO RED OUTLET. AMBU BAG AT BED SIDE. NO DISTRESS NOTED. PT AWAKE AND ALERT. Addendum: 01/04/19 at 1813 by JESICA RECINOS RT Amended: Links added.
--- NOTE | 2019-01-04 19:54 | NUR ---
COMMUNITY REPRESENTATIVE INITIAL NOTE RECEIVED PATIENT IN BED, AWAKE, ABLE TO MAKE NEEDS KNOWN BY MOUTHING WORDS WITH TRACH. TO VENT SETTING , NO SOB AND TOLERATES VENT SETTING WELL, SATURATING 99%. HOB ELEVATED. SINUS RHYTHM ON THE MONITOR WITH SR HR 77 . ABDOMEN SOFT AND NONTENDER. IVC ACCES ON THE (R) UA: MIDLINE-INTACT AND PATENT WITH DRESSING IN PLACE,CLEAN AND DRY. GT IN PLACE, PLACEMENT CONFIRMED BY AUSCULTATION WITH GTF ORDERED. NO RESIDUAL NOTED SITE CLEAN AND DRY. CERNA CATHETER IN PLACED DRAINING VIA GRAVITY WITH YELLOW URINE, SEDIMENTS NOTED. HOB KEPT
[2019-01-04] MEDS: ZOLPIDEM TARTRATE 5 MG TABLET PO PRN (20:52)
[2019-01-04] MEDS: SERTRALINE HCL 50 MG TABLET PO SCH (21:34)
[2019-01-05 00:17] VITALS: BP 131/90
[2019-01-05] MEDS: HYDROMORPHONE 1 MG/1 ML DISP.SYRIN IV PRN ×4 (01:50→16:00)
[2019-01-05 04:00] VITALS: BP 129/90
[2019-01-05 07:14] LABS: BASOPHILS # (AUTO) 0.1 /CMM (0.0-0.2); BASOPHILS % (AUTO) 0.7 % (0.0-2.0); EOSINOPHILS % (AUTO) 3.9 % (0.0-6.0); HEMATOCRIT 25 % (33-45); HEMOGLOBIN 8.3 g/dL (11.5-14.8); LYMPHOCYTES # (AUTO) 2.2 /CMM (0.8-4.8); LYMPHOCYTES % (AUTO) 16.3 % (20.0-44.0); MEAN CORPUSCULAR HGB CONC 33 g/dl (31.0-36.0); MEAN CORPUSCULAR VOLUME 81 fL (82-100); MONOCYTES # (AUTO) 0.7 /CMM (0.1-1.30); MONOCYTES % (AUTO) 5.6 % (2.0-12.0); NEUTROPHILS # (AUTO) 9.7 /CMM (1.8-8.9); NEUTROPHILS % (AUTO) 73.5 % (43.0-81.0); PLATELET COUNT (AUTO) 498 /CMM (150-450); RED BLOOD CELL COUNT(AUTO) 3.11 MIL/uL (4.0-5.2); WHITE BLOOD COUNT (AUTO) 13.2 K/uL (4.3-11.0)
--- NOTE | 2019-01-05 07:30 | NUR ---
DRILL PRESSER INITIAL NOTES RECEIVED PT IN BED, ON VENT TO TRACH. SETTINGS TOLERATED MD ORDERED. NO S/SX OF DISTRESS NOTED AT THIS TIME. NO C/O PAIN. ON TELE SR. A/OX3; MOUTHS WORDS. F/C DRAINING CLOUDY YELLOW URINE. PIERRE MIDLINE C/D/P/I. BED IN LOCKED/LOWEST POSITION. CALL LIGHT IN REACH. WILL CONT TO MONITOR.
--- NOTE | 2019-01-05 07:34 | NUR ---
SAND SIFTER CLOSING NOTE ENDORSED PATIENT IN BED, AWAKE, ABLE TO MAKE NEEDS KNOWN BY MOUTHING WORDS WITH TRACH. TO VENT SETTING , NO SOB AND TOLERATES VENT SETTING WELL, SATURATING 99%. HOB ELEVATED. SINUS RHYTHM ON THE MONITOR WITH SR HR 87 . ABDOMEN SOFT AND NONTENDER. IVC ACCES ON THE (R) UA: MIDLINE-INTACT AND PATENT WITH DRESSING IN PLACE,CLEAN AND DRY. GT IN PLACE, PLACEMENT CONFIRMED BY AUSCULTATION WITH GTF ORDERED. NO RESIDUAL NOTED SITE CLEAN AND DRY, PT REFUSED TO BE CHANGED, PAIN MEDICATION GIVEN , RISK AND BENEFIT EXPLAINED. CERNA CATHETER IN PLACED DRAINING VIA GRAVITY WITH YELLOW
[2019-01-05 07:46] LABS: CALCIUM, SERUM 8.4 mg/dL (8.5-10.1); CREATININE 0.3 mg/dL (0.6-1.3); PHOSPHORUS 2.8 mg/dL (2.5-4.9); POTASSIUM 3.3 mmol/L (3.5-5.1)
[2019-01-05 08:00] VITALS: BP 121/88
[2019-01-05] MEDS: MULTIVITAMINS,THERAGRAN 1 UDTAB TABLET GT SCH (08:18)
[2019-01-05] MEDS: LACTOBACILLUS RHAMNOSUS GG 1 EACH CAP.SPRINK PO SCH (08:18)
[2019-01-05] MEDS: FERROUS SULFATE UDC 300 MG/5 ML UDC GT SCH (08:18)
[2019-01-05] MEDS: ZINC SULFATE 220 MG CAPSULE GT SCH (08:18)
[2019-01-05] MEDS: VANCOMYCIN 1 GM in IV D5W 250 ML IV SCH (08:18)
[2019-01-05] MEDS: SORBITOL SOLUTION 30 ML GT SCH (08:25)
[2019-01-05] MEDS: DULOXETINE HCL 30 MG CAPSULE.DR GT SCH (08:26)
[2019-01-05] MEDS: HEPARIN SODIUM, PORCINE 5000 UNITS/1 ML VIAL SQ SCH (08:27)
[2019-01-05] MEDS: DAKINS QUARTER STRENGTH (0.125%) 480 ML BOTTLE TOP SCH (08:33)
[2019-01-05] MEDS: MUPIROCIN OINT 2% 22 GM TUBE SCH (08:33)
[2019-01-05 08:37] LABS: LYMPHOCYTES % (MANUAL) 16 % (16-48); NEUTROPHILS % (MANUAL) 74 (42-76)
[2019-01-05 08:38] LABS: EOSINOPHILS % (MANUAL) 5 % (0-4); MONOCYTES % (MANUAL) 5 % (0-11.0); MYELOCYTES % 1 % (0-0); REACTIVE LYMPHOCYTES 2 % (0-0)
[2019-01-05] MEDS: CEFEPIME 1 GM in IV D5W 50 ML IV SCH (10:02)
[2019-01-05] MEDS ORDERED: POTASSIUM CHLORIDE 20 MEQ TAB.PRT.SR PO SCH (11:30)
[2019-01-05 12:00] VITALS: BP 128/87
--- NOTE | 2019-01-05 14:12 | NUR ---
RT NOTE: PATIENT RECEIVED TRACHED ON MECHANICAL VENT. ALARMS VERIFIED AND AUDIBLE. SUCTIONED AND LAVAGED MODERATE AMOUNT OF THIN WHITE SECRETION. VENT PLUGGED INTO RED OUTLET. [facility] BAG AT [facility].
--- NOTE | 2019-01-05 14:23 | NUR ---
telephone order supervisor notes report given to jitendra mendosa. pt will be in room 1 at [facility]. pt's family-sister notified.
--- NOTE | 2019-01-05 16:10 | NUR ---
telehealth nurse closing notes pt transported to [facility] with ambulance crew and rt. pt requested dilaudid for 10/[address]/f/c in place. to be used in all care. belongings sent with ambulance crew. discharge instructions given to pt/sent paperwork with ambulance crew. all needs attended to.
== END 2019-01-05 16:20 | DRG 710 ==
LOC: ER 16:54 → TELE 20:15 → TELE-TD 21:43 → TELE1 22:56 → TELE-TD 12-31 17:05 → TELE1 12-31 18:43
PROVIDERS: ADMIT Nurse Practitioner Acute Care
PROC: 05H533Z Insertion of Infusion Device into Right Subclavian Vein, Percutaneous Approach (ICD-10-PCS; 2018-12-30)
PROC: 5A1955Z Respiratory Ventilation, Greater than 96 Consecutive Hours (ICD-10-PCS; 2018-12-30)
PROC: 0QB10ZZ Excision of Sacrum, Open Approach (ICD-10-PCS; principal; 2019-01-01)
DX: A41.9 Sepsis, unspecified organism (principal); N17.0 Acute kidney failure with tubular necrosis; Z99.11 Dependence on respirator [ventilator] status; G82.50 Quadriplegia, unspecified; J18.9 Pneumonia, unspecified organism; J96.11 Chronic respiratory failure with hypoxia; E44.0 Moderate protein-calorie malnutrition; L89.154 Pressure ulcer of sacral region, stage 4; Z93.0 Tracheostomy status; D68.59 Other primary thrombophilia; E87.0 Hyperosmolality and hypernatremia; E87.5 Hyperkalemia; Z93.1 Gastrostomy status; K59.00 Constipation, unspecified; R65.20 Severe sepsis without septic shock; B96.89 Other specified bacterial agents as the cause of diseases classified elsewhere; B96.4 Proteus (mirabilis) (morganii) as the cause of diseases classified elsewhere; D50.9 Iron deficiency anemia, unspecified; E87.6 Hypokalemia; J45.909 Unspecified asthma, uncomplicated; N21.0 Calculus in bladder; N13.6 Pyonephrosis; Z88.2 Allergy status to sulfonamides; V89.2XXS Person injured in unspecified motor-vehicle accident, traffic, sequela; E88.09 Other disorders of plasma-protein metabolism, not elsewhere classified; R13.10 Dysphagia, unspecified; J98.11 Atelectasis; Z68.24 Body mass index [BMI] 24.0-24.9, adult; N31.9 Neuromuscular dysfunction of bladder, unspecified; M46.28 Osteomyelitis of vertebra, sacral and sacrococcygeal region
CPT/HCPCS: 31720; 36415; 71045-TC; 80048-TC; 80053-TC; 80061-TC; 80076-TC; 80202-TC; 81000-TC; 83540-TC; 83605-TC; 83735-TC; 84100-TC; 84484-TC; 84703-TC; 85025-TC; 85730-TC; 87040-TC; 87070-TC; 87081-TC; 87086-TC; 87186-TC; 94002-TC; 94003-TC; 94760-TC; 94762-TC; 94799-TC; 99082-TC; A6253; A6402; A6403; G0378; J0692; J1170; J1644; J1815; J2270; J2405; J2543; J3370; J3475; J3480; J3490; J7030; J7050; J7060

== ENCOUNTER 2019-01-17 17:48 | Emergency (ER) | payer OTHER ==
[~2019-01-17] VITALS: Ht 167.6 cm; Wt 72.6 kg
[~2019-01-17 17:48] MED LIST: ACET650S26 GT; ALBU2.5V38 IH; BISA10SU8 RC; BUDE0.5A IH; DOCU250C14 GT; DULO30CA51 GT; ENOX40DI SQ; ESOM20CA GT; FERR300L GT; HYDR-3976 GT; LACT-209 GT; LORA1TAB PO; MELA5TAB GT; METH10TA2 GT; MIDO5TAB GT; MULT-24 GT; NA P133E RC; ONDA4TAB5 GT; POLY15DR40 EACHEYE; POLY17PO4 GT; SENN-168 GT; SERT50TA PO; VIT500LI GT; ZINC220C8 GT
[2019-01-17 18:05] VITALS: BP 109/78
--- NOTE | 2019-01-17 18:05 | NUR ---
PT. PLACED ON ESPRIT VENT VIA SHILEY#6 WITH PARAMETERS BELOW PER RT TRANSPORTER: AC 14 VT 450 ML FIO2 28% PEEP +8 BREATH SOUNDS CLEAR BILATERAL. VENT PLUGGED INTO RED OUTLET WITH ALARMS ON AND FUNCTIONING. MAIKOL @ BEDSIDE. Addendum: 01/17/19 at 1818 by MAY DOWNEY RT Amended: Links added.
--- NOTE | 2019-01-17 20:27 | NUR ---
CALLED [facility] FOR TRANSPORT ETA OF WAS [id number] WAS GIVEN. TRIP# [id number]
[2019-01-17 20:29] VITALS: BP 109/78
--- NOTE | 2019-01-17 20:37 | NUR ---
RT PT REC'D TRACHED ON MECHANICAL VENT, NO SOB NOTED AT THIS TIME, TRACH TUBE PATENT AND SECURE, VENT ALARMS ON AND AUDIBLE, PLUGGED IN [facility] [place] AT [facility]. PT SX'D. WILL CONTINUE TO MONITOR. Addendum: 01/17/19 at 2038 by MOMO FITZPATRICK RT Amended: Links added.
[2019-01-17 22:09] VITALS: BP 111/71
== END 2019-01-17 22:13 | disposition home or self-care (01) ==
LOC: ER 17:54
DX: Z45.2 Encounter for adjustment and management of vascular access device (principal); G82.50 Quadriplegia, unspecified; J96.10 Chronic respiratory failure, unspecified whether with hypoxia or hypercapnia; R13.10 Dysphagia, unspecified; J45.909 Unspecified asthma, uncomplicated; Z99.11 Dependence on respirator [ventilator] status; Z93.1 Gastrostomy status; Z93.0 Tracheostomy status; Z88.2 Allergy status to sulfonamides; Z88.6 Allergy status to analgesic agent; Z88.5 Allergy status to narcotic agent
CPT/HCPCS: 71045-TC

== ENCOUNTER 2019-04-10 19:51 | Emergency (ER) | payer OTHER ==
[~2019-04-10] VITALS: Ht 170.2 cm; Wt 62.1 kg
[~2019-04-10 19:51] MED LIST changes: +BISA10SU11 RC; -BISA10SU8 RC; -DULO30CA51 GT; +DULO30CA52 GT
--- NOTE | 2019-04-10 19:56 | NUR ---
TO BED 2 BIB EMS SENT BY PMD FOR C/O LOW HGB-6.5. PT AAOX4 NO ACUTE DISTRESS NOTED, RESP EVEN AND UNLABORED. PT INCOMPLETE QUAD, PT ABLE TO MOVE BILATERAL UPPER EXTREMITY WITH WEAKNESS. PT CHRONIC TREACHE, ON BLOW BY O2@2L NORMALLY. PLACE PT ON CARDIAC MONITORING, CONTINUOUS POX. ER MD AT BEDSIDE TO EVAL PT WITH ORDERS RECEIVED. WILL CARRY OUT ORDERS.
--- NOTE | 2019-04-10 20:05 | NUR ---
STARTED SL 20G TO LFA, BLOOD DRAWN AND SENT TO LAB.
[2019-04-10 20:17] LABS: BASOPHILS # (AUTO) 0.1 /CMM (0.0-0.2); EOSINOPHILS % (AUTO) 2.3 % (0.0-6.0); HEMATOCRIT 26 % (33-45); HEMOGLOBIN 7.8 g/dL (11.5-14.8); LYMPHOCYTES % (AUTO) 23.9 % (20.0-44.0); MEAN CORPUSCULAR HGB CONC 30 g/dl (31.0-36.0); MEAN CORPUSCULAR VOLUME 72 fL (82-100); MONOCYTES # (AUTO) 0.8 /CMM (0.1-1.30); MONOCYTES % (AUTO) 9.7 % (2.0-12.0); NEUTROPHILS # (AUTO) 5.2 /CMM (1.8-8.9); NEUTROPHILS % (AUTO) 63.1 % (43.0-81.0); PLATELET COUNT (AUTO) 495 /CMM (150-450); WHITE BLOOD COUNT (AUTO) 8.3 K/uL (4.3-11.0)
[2019-04-10 20:38] LABS: ALBUMIN 3.2 g/dL (3.4-5.0); BILIRUBIN,DIRECT 0.1 mg/dL (0.0-0.2); BILIRUBIN,TOTAL 0.3 mg/dL (0.2-1.0); CALCIUM, SERUM 10.4 mg/dL (8.5-10.1); CREATININE 0.5 mg/dL (0.6-1.3); POTASSIUM 4.3 mmol/L (3.5-5.1); TOTAL PROTEIN, SERUM 8.4 g/dL (6.4-8.2)
--- NOTE | 2019-04-10 20:39 | NUR ---
URINE SAMPLE COLLECTED AND SENT TO LAB.
[2019-04-10 20:41] LABS: BAND % (MANUAL) 22 % (0.0-5.0); EOSINOPHILS % (MANUAL) 3 % (0-4); LYMPHOCYTES % (MANUAL) 22 % (16-48); MONOCYTES % (MANUAL) 8 % (0-11.0); NEUTROPHILS % (MANUAL) 45 (42-76)
[2019-04-10 21:02] LABS: APPEARANCE,URINE TURBID (CLEAR); BILIRUBIN,URINE NEGATIVE (NEGATIVE); BLOOD, URINE NEGATIVE Ery/uL (NEGATIVE); COLOR,URINE YELLOW (YELLOW); KETONES,URINE NEGATIVE (NEGATIVE); LEUKOCYTE ESTERASE ,URINE 2+ (NEGATIVE); NITRITE, URINE POSITIVE (NEGATIVE); PH,URINE 7.5 (5.0-8.0); PROTEIN,URINE NEGATIVE (NEGATIVE); UGLUCOSE NEGATIVE (NEGATIVE)
[2019-04-10 21:23] LABS: RBC,URINE 0-2 /HPF (0-2)
[2019-04-10 21:24] LABS: BACTERIA,URINE Many /HPF (None Seen); CALCIUM OXALATE CRYSTALS,UR Moderate /HPF (None Seen); SQUAMOUS EPITHELIAL CELL,UR Few /HPF (None Seen)
[2019-04-10] MEDS ORDERED: CEFTRIAXONE 2 G in IV D5W 50 ML IV ONE (21:30)
[2019-04-10] MEDS ORDERED: CEFTRIAXONE 1GM BAG (ER ONLY) 100 ML IV ONE (21:30)
[2019-04-10] MEDS ORDERED: IBUPROFEN SUSP 100 MG/5 ML UDC ONE (21:31)
[2019-04-10] MEDS ORDERED: IBUPROFEN SUSP 100 MG/5 ML UDC GT ONE (22:00)
--- NOTE | 2019-04-10 22:12 | NUR ---
BRONWYN KHAN 40 MIN (1130), TRIP # [id number]
[2019-04-10 23:03] VITALS: BP 91/59
--- NOTE | 2019-04-10 23:03 | NUR ---
REPORT GIVEN TO EMT TRANSPORT.
== END 2019-04-10 23:17 | disposition home or self-care (01) ==
LOC: ER 19:54
DX: D64.9 Anemia, unspecified (principal); N39.0 Urinary tract infection, site not specified; J45.909 Unspecified asthma, uncomplicated; Z93.1 Gastrostomy status; Z93.0 Tracheostomy status; Z88.2 Allergy status to sulfonamides; Z88.6 Allergy status to analgesic agent; Z79.899 Other long term (current) drug therapy
CPT/HCPCS: 36415; 71045; 80048; 80076; 81001; 83605; 84145; 84484; 85025; 85730; 86850; 87040 ×2; 87086; 93005; 96365; 99284; J0696; 81000-TC; J7060

== ENCOUNTER 2019-07-30 14:18 | Inpatient (IN) | payer MEDICAID, OTHER ==
[~2019-07-30] VITALS: Ht 167.6 cm; Wt 60.8 kg
[~2019-07-30 14:18] MED LIST changes: -MIDO5TAB GT; +MIDO5TAB4 GT; +ZINC1CAP2 GT; -ZINC220C8 GT
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
--- NOTE | 2019-07-30 14:40 | NUR ---
DR. FINLEY AT BEDSIDE FOR EVAL.
[2019-07-30 15:11] LABS: BASOPHILS % (AUTO) 0.5 % (0.0-2.0); EOSINOPHILS % (AUTO) 2.5 % (0.0-6.0); HEMATOCRIT 21 % (33-45); LYMPHOCYTES # (AUTO) 1.5 /CMM (0.8-4.8); LYMPHOCYTES % (AUTO) 25.2 % (20.0-44.0); MEAN CORPUSCULAR HGB CONC 31 g/dl (31.0-36.0); MEAN CORPUSCULAR VOLUME 69 fL (82-100); MONOCYTES # (AUTO) 0.6 /CMM (0.1-1.30); MONOCYTES % (AUTO) 9.7 % (2.0-12.0); NEUTROPHILS # (AUTO) 3.7 /CMM (1.8-8.9); NEUTROPHILS % (AUTO) 62.1 % (43.0-81.0); PLATELET COUNT (AUTO) 347 /CMM (150-450); RED BLOOD CELL COUNT(AUTO) 2.95 MIL/uL (4.0-5.2); WHITE BLOOD COUNT (AUTO) 5.9 K/uL (4.3-11.0)
[2019-07-30 15:30] LABS: HEMOGLOBIN 6.4 g/dL (11.5-14.8)
[2019-07-30 15:41] LABS: CALCIUM, SERUM 8.8 mg/dL (8.5-10.1); CREATININE 0.4 mg/dL (0.6-1.3); POTASSIUM 4.5 mmol/L (3.5-5.1)
[2019-07-30 15:52] LABS: BILIRUBIN,URINE Negative (NEGATIVE); BLOOD, URINE Trace-lysed Ery/uL (NEGATIVE); COLOR,URINE Yellow (YELLOW); KETONES,URINE Negative (NEGATIVE); LEUKOCYTE ESTERASE ,URINE Small (NEGATIVE); NITRITE, URINE Negative (NEGATIVE); PH,URINE 7.5 (5.0-8.0); PROTEIN,URINE Negative (NEGATIVE); UGLUCOSE Negative (NEGATIVE); UROBILINOGEN,URINE 0.2 EU/dL (0.2)
[2019-07-30 15:54] LABS: APPEARANCE,URINE Slightly Cloudy (CLEAR)
--- NOTE | 2019-07-30 16:01 | NUR ---
PATIENT GAVE VERBAL CONSENT FOR BLOOD TRANSFUSION, WITNESSED BY ANOTHER RN, PATIENT UNABLE TO SIGN DUE TO BUE CONTRACTIONS.
[2019-07-30 16:05] LABS: BACTERIA,URINE Few /HPF (None Seen); SQUAMOUS EPITHELIAL CELL,UR Few /HPF (None Seen)
[2019-07-30] MEDS ORDERED: VANCOMYCIN 1 GM in IV D5W 250 ML IV ONE (16:30)
[2019-07-30 16:46] LABS: EOSINOPHILS % (MANUAL) 3 % (0-4); LYMPHOCYTES % (MANUAL) 27 % (16-48); MONOCYTES % (MANUAL) 10 % (0-11.0); NEUTROPHILS % (MANUAL) 60 (42-76)
--- NOTE | 2019-07-30 16:49 | NUR ---
REPORT GIVEN TO REJI CAT FOR ROYA.
[2019-07-30] MEDS ORDERED: FLUD0.1T3 GT (17:09)
[2019-07-30] MEDS ORDERED: ZOLP10TA2 PO (17:09)
[2019-07-30] MEDS ORDERED: BACL10TA PO (17:09)
[2019-07-30] MEDS ORDERED: NUT.237L67 GT (17:09)
--- NOTE | 2019-07-30 17:09 | NUR ---
PATIENT TRANSFERRED TO ROOM 310-1 VIA RJAY IN STABLE CONDITION. NO DISTRESS NOTED. ENDORSED TO REJI CAT.
--- NOTE | 2019-07-30 17:40 | NUR ---
PT. ADM. TO RM 310-1.MADE COMFORTABLE.PHOTOS TAKEN.STATES SHOULDER PAIN HENRI. OTHERWISE OK.VANCO STILL INFUSING.HEP LOCK INTACT.G-TUBE CLAMPED.
[2019-07-30] MEDS ORDERED: ONDANSETRON HCL/PF 4 MG/2 ML VIAL IVP PRN (19:00)
[2019-07-30] MEDS ORDERED: MAGNESIUM HYDROXIDE 30 ML UDC PO PRN (19:00)
[2019-07-30] MEDS ORDERED: Z GUARD REMEDY 2 OZ OINT TP PRN (19:00)
[2019-07-30] MEDS ORDERED: ACETAMINOPHEN 325 MG TABLET PO PRN (19:00)
[2019-07-30] MEDS ORDERED: HYDROCODONE/APAP 5/325MG 1 EACH TABLET PO PRN (19:00)
[2019-07-30] MEDS ORDERED: MAG HYDROX/AL HYDROX/SIMETH 30 ML UDC PO PRN (19:00)
[2019-07-30] MEDS ORDERED: ZOLPIDEM TARTRATE 5 MG TABLET PO PRN (19:00)
[2019-07-30] MEDS ORDERED: FEE PK DOSING 1 MIN EA MC ONE (19:01)
[2019-07-30 19:19] VITALS: BP 80/58
--- NOTE | 2019-07-30 19:25 | NUR ---
RN OPEN NOTES RECEIVED PATIENT AWAKE IN BED. A/O X4. NO SIGNS OF DISTRESS OR DISCOMFORT. BREATHING EVEN AND UNLABORED. HAS TRACH COLLAR ON 1LPM O2. TOLERATING WELL. HAS IV ACCESS IN R HAND, PATENT AND INTACT, NO SIGNS OF REDNESS OR INFILTRATION. HAS F/C INTACT, DRAINING CLOUDY YELLOW FLUID. BED IN LOW LOCKED POSITION WITH SIDE RAILS X2. CALL LIGHT WITHIN REACH. WILL CONTINUE TO MONITOR.
[2019-07-30 20:00] VITALS: BP 89/59
[2019-07-30] MEDS: VANCOMYCIN 0.75 GM in IV D5W 250 ML IV SCH (20:30)
[2019-07-30 22:40] VITALS: BP 80/50
[2019-07-30 22:55] VITALS: BP 89/57
[2019-07-30 23:25] VITALS: BP 90/51
[2019-07-31] MEDS ORDERED: FLUDROCORTISONE 0.1 MG TABLET GT SCH
[2019-07-31] MEDS: METHADONE HCL 10 MG TABLET GT SCH ×4 (00:08→20:06)
[2019-07-31 00:25] VITALS: BP 92/58
[2019-07-31 01:40] VITALS: BP 95/51
[2019-07-31] MEDS: ZOSYN IVPB 3.375 G in IV D5W 50ml IV SCH ×4 (01:42→18:14)
[2019-07-31] MEDS: VANCOMYCIN 0.75 GM in IV D5W 250 ML IV SCH ×3 (04:45→20:07)
--- NOTE | 2019-07-31 07:03 | NUR ---
RN CLOSING NOTES PATIENT AWAKE IN BED. A/O X4. NO SIGNS OF DISTRESS OR DISCOMFORT. BREATHING EVEN AND UNLABORED. HAS TRACH COLLAR ON 1LPM O2. TOLERATING WELL. HAS IV ACCESS IN R HAND, PATENT AND INTACT, NO SIGNS OF REDNESS OR INFILTRATION. HAS GT TUBE INTACT, CLAMPED. HAS F/C INTACT, DRAINING CLOUDY YELLOW FLUID. ALL NEED MET. NO SIGNIFICANT CHANGES THROUGH THE NIGHT. DRESSINGS ON B HIPS, SACRAL AND R ANKLE C/D/I. PATIENT REPOSITIONED Q2H AND PRN. BED IN LOW LOCKED POSITION WITH SIDE RAILS X2. CALL LIGHT WITHIN REACH. WILL ENDORSE TO AM SHIFT FOR ROYA.
[2019-07-31 08:23] LABS: THYROID STIMULATING HORMONE 1.92 uIU/mL (0.358-3.74)
[2019-07-31 08:26] LABS: CREATININE 0.4 mg/dL (0.6-1.3); PHOSPHORUS 4.3 mg/dL (2.5-4.9); POTASSIUM 4.4 mmol/L (3.5-5.1)
[2019-07-31 08:30] LABS: BASOPHILS % (AUTO) 0.4 % (0.0-2.0); EOSINOPHILS % (AUTO) 6.7 % (0.0-6.0); HEMATOCRIT 25 % (33-45); HEMOGLOBIN 7.9 g/dL (11.5-14.8); LYMPHOCYTES # (AUTO) 1.1 /CMM (0.8-4.8); LYMPHOCYTES % (AUTO) 23.4 % (20.0-44.0); MEAN CORPUSCULAR HGB CONC 31 g/dl (31.0-36.0); MEAN CORPUSCULAR VOLUME 73 fL (82-100); MONOCYTES # (AUTO) 0.7 /CMM (0.1-1.30); MONOCYTES % (AUTO) 14.5 % (2.0-12.0); NEUTROPHILS # (AUTO) 2.5 /CMM (1.8-8.9); PLATELET COUNT (AUTO) 326 /CMM (150-450); RED BLOOD CELL COUNT(AUTO) 3.49 MIL/uL (4.0-5.2); WHITE BLOOD COUNT (AUTO) 4.6 K/uL (4.3-11.0)
[2019-07-31] MEDS ORDERED: NEPRO VAN 237 ML CAN GT SCH (08:30)
[2019-07-31] MEDS ORDERED: NA PHOS,M-B/NA PHOS,DI-BA 1 EA ENEMA RC PRN (08:30)
[2019-07-31] MEDS ORDERED: BISACODYL SUPP (10 MG) 10 MG/SUPP.RECT SUPP.RECT RC PRN (08:30)
[2019-07-31] MEDS ORDERED: ZOLPIDEM TARTRATE 10 MG TABLET PO PRN (08:30)
[2019-07-31] MEDS ORDERED: LORAZEPAM 1 MG TABLET PO PRN (08:30)
[2019-07-31] MEDS ORDERED: MISCELLANEOUS MED 1 EA EA XX ONE (08:30)
[2019-07-31] MEDS: ENOXAPARIN SODIUM 40 MG/0.4 ML DISP.SYRIN SQ SCH (09:00)
[2019-07-31] MEDS: ALBUTEROL FS 2.5 MG/3 ML VIAL.NEB NEB SCH ×3 (09:22→23:23)
[2019-07-31] MEDS: ZINC SULFATE 220 MG CAPSULE GT SCH ×2 (09:57→17:14)
[2019-07-31] MEDS: FLUDROCORTISONE 0.1 MG TABLET GT SCH ×2 (09:58→17:14)
[2019-07-31] MEDS: BACLOFEN (10 MG) 10 MG TABLET PO SCH ×3 (09:58→17:14)
[2019-07-31] MEDS: ASCORBIC ACID 500 MG TABLET GT SCH ×2 (09:58→20:07)
[2019-07-31] MEDS: DULOXETINE HCL 30 MG CAPSULE.DR GT SCH ×2 (09:58→20:09)
[2019-07-31] MEDS: MULTIVITAMINS,THERAGRAN 1 UDTAB TABLET GT SCH (09:58)
[2019-07-31] MEDS: DOCUSATE SODIUM LIQ 100 MG/10 ML UDC GT SCH (09:59)
[2019-07-31] MEDS: PANTOPRAZOLE 40 MG/PACK PACK GT SCH (10:19)
[2019-07-31] MEDS: FERROUS SULFATE UDC 300 MG/5 ML UDC GT SCH (10:21)
--- NOTE | 2019-07-31 10:32 | NUR ---
WOUND CARE CONSULT: PT PRESENTS WITH NECROTIC WOUNDS TO RT ANKLE, BILATERAL HIPS AND STAGE 4 ULCER TO SACRUM, ALL PRESENT ON ADMISSION. PT IS IMMOBILE WITH CURRENT SHAYNA SCORE OF 12. FIRST STEP LOW AIRLOSS MATTRESS ORDERED. RECOMMEND DPM AND SURGICAL CONSULTS. DR LOPEZ NOTIFIED OF DPM CONSULT REQUEST AND DR GIOVANNI LOPEZ NOTIFIED OF SURGICAL CONSULT REQUEST. RECOMMENDATIONS MADE FOR WOUND CARE AND DISCUSSED WITH NURSING STAFF. DEFER TO DPM FOR LOWER EXTREMITY WOUND. WILL SEE PRN. ACOSTA IN AGREEMENT WITH PLAN OF CARE. Addendum: 07/31/19 at 1034 by MIKEL CLARK WNDNU Amended: Links added.
[2019-07-31] MEDS: DAKINS QUARTER STRENGTH (0.125%) 480 ML BOTTLE TOP SCH (11:15)
[2019-07-31] MEDS: BUDESONIDE RESPULE INH 0.5 MG/2 ML AMPUL.NEB IH SCH ×3 (11:27→19:50)
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
[2019-07-31] MEDS ORDERED: METHADONE HCL 10 MG TABLET GT SCH (13:00)
--- NOTE | 2019-07-31 13:31 | NUR ---
M/S RN NOTES PATIENT HAD BLOOD DRAWN FOR VANCO TROUGH X2 BUT UNSUCCESSFUL. PATIENT REFUSES TO HAVE BLOOD DRAWN AGAIN, EXPLAINED THE RISKS AND BENEFITS BUT PATIENT STILL REFUSED. CALLED PHARMACY SPOKE TO MD ARLENE ASKED IF VANCOMYCIN THAT WAS DUE AT 1200 CAN BE GIVEN AND PER ARLENE WAS OKAY TO GIVE.
--- NOTE | 2019-07-31 16:36 | NUR ---
M/S RN OFELIA CAMARILLO FROM [facility] REPORTED PATIENT POSITIVE FOR MRSA OF RIGHT NARES. PATIENT PUT IN CONTACT ISOLATION.
[2019-07-31] MEDS: ENSURE ENLIVE CHOC 237 ML CAN PO SCH (17:41)
--- NOTE | 2019-07-31 18:54 | NUR ---
M/S RN NOTES PATIENT AWAKE IN HIGH FOWLERS POSITION, NO RESPIRATORY DISTRESS ON 02 AT 2LPM VIA TRACH MASK. NO C/O PAIN AT THIS TIME. PATIENT'S IV SL ON THE RT HAND #20G, INTACT AND PATENT. PATIENT'S BED ON LOWEST LOCKED POSITION, CALL LIGHT WITHIN REACH. WILL ENDORSE TO ONCOMING NURSE.
[2019-07-31 19:30] VITALS: BP 85/49
--- NOTE | 2019-07-31 19:30 | NUR ---
MS RN NOTES PATIENT IN BED AWAKE, IN HIGH FOWLERS POSITION. BREATHING EVEN AND UNLABORED ON 1L TRACH MASK. DENIES ACUTE RESPIRATORY DISTRESS, NO ACUTE PAIN. PATIENT IV ON RIGHT HAND #20G ON SALINE LOCK, SHOWS NO SIGNS OF REDNESS, NO INFILTRATION. GTUBE IS CLEAN, DRY, AND INTACT, FLUSHING WELL. F/C IS FLOWING, CLEAR, YELLOW URINE. SAFETY PRECAUTION IN PLACE. BED IN LOWEST POSITION, LOCKED, AND CALL LIGHT KEPT WITHIN REACH.
[2019-07-31 20:00] VITALS: BP 80/48
--- NOTE | 2019-07-31 21:36 | NUR ---
MS RN NOTES NOTIFIED DR. DOS SANTOS PT BLOOD PRESSURE OF 85/49. PER DOCTORS ORDER 500CC OF NS BOLUS. ORDER READ BACK, DOCUMENTED, AND ORDER FOLLOWED THROUGH.
[2019-07-31] MEDS ORDERED: IV NS 0.9% 500 ML IV ONE (22:00)
[2019-07-31] MEDS: SERTRALINE HCL 50 MG TABLET PO SCH (22:11)
--- NOTE | 2019-07-31 22:25 | NUR ---
MS RN NOTES PATIENT RECEIVED BOLUS OF 500CC OF NS. RECHECKED BLOOD PRESSURE 96/63. WILL CONTINUE TO MONITOR.
[2019-07-31 22:55] VITALS: BP 96/63
[2019-07-31 23:00] VITALS: BP 96/63
[2019-08-01] MEDS: ZOSYN IVPB 3.375 G in IV D5W 50ml IV SCH ×5 (00:27→23:39)
[2019-08-01] MEDS: METHADONE HCL 10 MG TABLET GT SCH ×3 (04:32→20:30)
[2019-08-01] MEDS: VANCOMYCIN 0.75 GM in IV D5W 250 ML IV SCH ×3 (04:32→20:27)
--- NOTE | 2019-08-01 06:01 | NUR ---
MS RN NOTES PATIENT REFUSED LAB DRAW. LAB COME AGAIN 0830.
--- NOTE | 2019-08-01 06:31 | NUR ---
MS RN NOTES PATIENT IN ASLEEP, EASILY AROUSED, IN HIGH FOWLERS POSITION. BREATHING EVEN AND UNLABORED ON 1L TRACH MASK. DENIES ACUTE RESPIRATORY DISTRESS, NO ACUTE PAIN. PATIENT IV ON RIGHT HAND #20G ON SALINE LOCK, SHOWS NO SIGNS OF REDNESS, NO INFILTRATION. GTUBE IS CLEAN, DRY, AND INTACT, FLUSHING WELL. F/C IS FLOWING, CLEAR, YELLOW URINE. ALL MEDICATIONS DUE GIVEN. SAFETY PRECAUTION IN PLACE. BED IN LOWEST POSITION, LOCKED, AND CALL LIGHT KEPT WITHIN REACH. WILL ENDORSE TO ONCOMING NURSE.
--- NOTE | 2019-08-01 07:20 | NUR ---
MS RN NOTES PATIENT RESTING IN BED, NO RESPIRATORY DISTRESS O2 ON 1L VIA TRACH MASK. NO C/O PAIN AT THIS TIME. IV ON RIGHT HAND #20G SL, INTACT AND PATENT. GT INTACT. F/C DRAINING YELLOW, CLOUDY URINE. CONTACT ISOLATION MAINTAINED. BED ON LOWEST LOCKED POSITION, CALL LIGHT WITHIN REACH. WILL CONTINUE TO MONITOR.
[2019-08-01] MEDS: BUDESONIDE RESPULE INH 0.5 MG/2 ML AMPUL.NEB IH SCH ×2 (07:30→19:57)
[2019-08-01] MEDS: ALBUTEROL FS 2.5 MG/3 ML VIAL.NEB NEB SCH ×3 (07:35→23:10)
[2019-08-01 07:52] VITALS: BP 80/46
[2019-08-01] MEDS ORDERED: IV NS 0.9% 500 ML IV ONE (08:00)
[2019-08-01] MEDS: ENSURE ENLIVE CHOC 237 ML CAN PO SCH ×3 (08:12→18:53)
[2019-08-01] MEDS: FLUDROCORTISONE 0.1 MG TABLET GT SCH ×2 (09:57→18:53)
[2019-08-01] MEDS: DOCUSATE SODIUM LIQ 100 MG/10 ML UDC GT SCH (09:57)
[2019-08-01] MEDS: DULOXETINE HCL 30 MG CAPSULE.DR GT SCH ×2 (09:58→20:31)
[2019-08-01] MEDS: MULTIVITAMINS,THERAGRAN 1 UDTAB TABLET GT SCH (09:58)
[2019-08-01] MEDS: ASCORBIC ACID 500 MG TABLET GT SCH ×2 (09:58→20:31)
[2019-08-01] MEDS: PANTOPRAZOLE 40 MG/PACK PACK GT SCH (09:58)
[2019-08-01] MEDS: BACLOFEN (10 MG) 10 MG TABLET PO SCH ×3 (09:58→18:53)
[2019-08-01] MEDS: DAKINS QUARTER STRENGTH (0.125%) 480 ML BOTTLE TOP SCH (09:59)
[2019-08-01] MEDS: ENOXAPARIN SODIUM 40 MG/0.4 ML DISP.SYRIN SQ SCH (09:59)
[2019-08-01] MEDS: THERAHONEY GEL 1.5 OZ TUBE TP SCH (10:00)
[2019-08-01] MEDS: ZINC SULFATE 220 MG CAPSULE GT SCH ×2 (10:02→18:53)
[2019-08-01] MEDS: MUPIROCIN OINT 2% 22 GM TUBE SCH ×2 (10:04→21:36)
[2019-08-01] MEDS: FERROUS SULFATE UDC 300 MG/5 ML UDC GT SCH (10:06)
[2019-08-01] MEDS ORDERED: SILVER NITRATE APPLICATOR 1 EA BOX TP ONE (14:00)
[2019-08-01] MEDS ORDERED: LIDOCAINE 1%-EPI 1:200,000 SDV 10 ML VIAL IJ ONE (14:00)
[2019-08-01 14:32] LABS: BASOPHILS % (AUTO) 0.4 % (0.0-2.0); EOSINOPHILS % (AUTO) 6.4 % (0.0-6.0); HEMATOCRIT 24 % (33-45); HEMOGLOBIN 7.5 g/dL (11.5-14.8); MEAN CORPUSCULAR HGB CONC 31 g/dl (31.0-36.0); MEAN CORPUSCULAR VOLUME 73 fL (82-100); MONOCYTES # (AUTO) 0.4 /CMM (0.1-1.30); MONOCYTES % (AUTO) 10.2 % (2.0-12.0); NEUTROPHILS # (AUTO) 2.4 /CMM (1.8-8.9); PLATELET COUNT (AUTO) 313 /CMM (150-450); RED BLOOD CELL COUNT(AUTO) 3.34 MIL/uL (4.0-5.2); WHITE BLOOD COUNT (AUTO) 4.1 K/uL (4.3-11.0)
[2019-08-01 14:43] LABS: CALCIUM, SERUM 8.4 mg/dL (8.5-10.1); CREATININE 0.3 mg/dL (0.6-1.3)
[2019-08-01 16:00] VITALS: BP 86/56
[2019-08-01 19:30] VITALS: BP 95/61
--- NOTE | 2019-08-01 19:30 | NUR ---
MS RN NOTES PATIENT IN BED, IN HIGH FOWLERS POSITION. BREATHING EVEN AND UNLABORED ON 1L TRACH MASK. DENIES ACUTE RESPIRATORY DISTRESS, NO ACUTE PAIN. PATIENT IV ON RIGHT HAND #20G ON SALINE LOCK, SHOWS NO SIGNS OF REDNESS, NO INFILTRATION. GTUBE IS CLEAN, DRY, AND INTACT, FLUSHING WELL. F/C IS FLOWING, CLOUDY, YELLOW URINE. SAFETY PRECAUTION IN PLACE. BED IN LOWEST POSITION, LOCKED, AND CALL LIGHT KEPT WITHIN REACH. WILL CONTINUE TO MONITOR.
[2019-08-01 20:00] VITALS: BP 95/61
[2019-08-01] MEDS: SERTRALINE HCL 50 MG TABLET PO SCH (21:36)
--- NOTE | 2019-08-01 21:48 | NUR ---
MS RN NOTES PATIENT REFUSED ZOLOFT DUE 2199. RECORDED IN EMAR.
[2019-08-02] MEDS: VANCOMYCIN 0.75 GM in IV D5W 250 ML IV SCH ×3 (04:20→21:07)
[2019-08-02] MEDS: METHADONE HCL 10 MG TABLET GT SCH ×3 (04:38→21:59)
[2019-08-02] MEDS: ZOSYN IVPB 3.375 G in IV D5W 50ml IV SCH ×3 (06:16→18:22)
[2019-08-02 07:02] LABS: BASOPHILS % (AUTO) 0.7 % (0.0-2.0); EOSINOPHILS % (AUTO) 5.1 % (0.0-6.0); HEMATOCRIT 25 % (33-45); HEMOGLOBIN 7.6 g/dL (11.5-14.8); LYMPHOCYTES # (AUTO) 1.8 /CMM (0.8-4.8); LYMPHOCYTES % (AUTO) 39.8 % (20.0-44.0); MEAN CORPUSCULAR HGB CONC 31 g/dl (31.0-36.0); MEAN CORPUSCULAR VOLUME 72 fL (82-100); MONOCYTES # (AUTO) 0.4 /CMM (0.1-1.30); MONOCYTES % (AUTO) 9.5 % (2.0-12.0); NEUTROPHILS # (AUTO) 2.1 /CMM (1.8-8.9); NEUTROPHILS % (AUTO) 44.9 % (43.0-81.0); PLATELET COUNT (AUTO) 323 /CMM (150-450); RED BLOOD CELL COUNT(AUTO) 3.39 MIL/uL (4.0-5.2); WHITE BLOOD COUNT (AUTO) 4.6 K/uL (4.3-11.0)
[2019-08-02] MEDS: BUDESONIDE RESPULE INH 0.5 MG/2 ML AMPUL.NEB IH SCH ×2 (07:30→19:30)
[2019-08-02 07:32] LABS: CALCIUM, SERUM 8.7 mg/dL (8.5-10.1); CREATININE 0.4 mg/dL (0.6-1.3); PHOSPHORUS 3.4 mg/dL (2.5-4.9); POTASSIUM 4.1 mmol/L (3.5-5.1)
[2019-08-02] MEDS: ALBUTEROL FS 2.5 MG/3 ML VIAL.NEB NEB SCH ×3 (07:35→23:30)
[2019-08-02 08:00] VITALS: BP 95/59
[2019-08-02] MEDS: PANTOPRAZOLE 40 MG/PACK PACK GT SCH (08:15)
[2019-08-02] MEDS: BACLOFEN (10 MG) 10 MG TABLET PO SCH ×3 (08:15→18:18)
[2019-08-02] MEDS: MULTIVITAMINS,THERAGRAN 1 UDTAB TABLET GT SCH (08:15)
[2019-08-02] MEDS: ASCORBIC ACID 500 MG TABLET GT SCH ×2 (08:15→21:47)
[2019-08-02] MEDS: DULOXETINE HCL 30 MG CAPSULE.DR GT SCH ×2 (08:15→21:47)
[2019-08-02] MEDS: DOCUSATE SODIUM LIQ 100 MG/10 ML UDC GT SCH (08:15)
[2019-08-02] MEDS: FLUDROCORTISONE 0.1 MG TABLET GT SCH ×2 (08:15→17:00)
[2019-08-02] MEDS: ZINC SULFATE 220 MG CAPSULE GT SCH ×2 (08:15→18:18)
[2019-08-02] MEDS: FERROUS SULFATE UDC 300 MG/5 ML UDC GT SCH (08:15)
[2019-08-02] MEDS: DAKINS QUARTER STRENGTH (0.125%) 480 ML BOTTLE TOP SCH (08:17)
[2019-08-02] MEDS: THERAHONEY GEL 1.5 OZ TUBE TP SCH (08:18)
[2019-08-02] MEDS: ENSURE ENLIVE CHOC 237 ML CAN PO SCH ×3 (08:18→18:20)
[2019-08-02] MEDS: ENOXAPARIN SODIUM 40 MG/0.4 ML DISP.SYRIN SQ SCH (09:00)
[2019-08-02] MEDS: MUPIROCIN OINT 2% 22 GM TUBE SCH ×2 (09:00→21:59)
[2019-08-02 16:00] VITALS: BP 117/86
[2019-08-02] MEDS ORDERED: FEE PK DOSING 1 MIN EA MC ONE (18:45)
--- NOTE | 2019-08-02 19:30 | NUR ---
MS RN OPENING NOTES RECEIVED PATIENT FROM MORNING SHIFT, ALERT AND ORIENTED X 4. VERBALLY RESPONSIVE AND ABLE TO FOLLOW DIRECTIONS. BREATHING REGULAR AND UNLABORED ON OXYGEN AT 1L/min VIA TRACH MASK. TRACH INTACT AND PATENT. NO IV ACCESS, TO REINSERT NEW LINE. GTUBE INTACT WITH NO RESIDUAL ASPIRATED. CERNA CATH PATENT DRAINING CLEAR YELLOW URINE WITH MODERATE AMOUNT ON URINARY BAG. COMPLAINED OF 2/10 SHOULDER PAIN, NON-PHARMACOLOGICAL INTERVENTIONS PROVIDED. BED LOW AND LOCKED ON SEMI FOWLERS POSITION. CALL LIGHT IN REACH. WILL CONTINUE TO MONITOR.
[2019-08-02 20:00] VITALS: BP 86/54
[2019-08-02] MEDS ORDERED: GENTAMICIN 450 MG in IV D5W 100 ML IV SCH (20:00)
--- NOTE | 2019-08-02 20:35 | NUR ---
MS RN NOTES NEW IV ACCESS REINSERTED ON LEFT FOREARM G22 WITH GOOD BLOOD BACKFLOW, FLUSHING WELL. WILL CONTINUE TO MONITOR.
[2019-08-02] MEDS: SERTRALINE HCL 50 MG TABLET PO SCH (21:47)
[2019-08-02 22:00] VITALS: BP 86/54
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
[2019-08-03] MEDS: VANCOMYCIN 0.75 GM in IV D5W 250 ML IV SCH ×3 (03:42→20:28)
--- NOTE | 2019-08-03 04:30 | NUR ---
MS RN NOTES ASKED PATIENT IF SHE WANTS TO CHANGE HER CERNA CATHETER NOW PER HER "DO IT A LITTLE BIT LATER". WILL CONTINUE TO MONITOR.
[2019-08-03] MEDS: METHADONE HCL 10 MG TABLET GT SCH ×3 (04:40→20:28)
--- NOTE | 2019-08-03 06:40 | NUR ---
MS RN CLOSING NOTES PATIENT IN BED, ALERT AND ORIENTED X 4. VERBALLY RESPONSIVE AND ABLE TO FOLLOW DIRECTIONS. BREATHING REGULAR AND UNLABORED ON OXYGEN AT 1L/min VIA TRACH MASK. TRACH INTACT AND PATENT. LEFT FOREARM G22 IV LINE INTACT AND INFUSING WELL. GTUBE INTACT WITH NO RESIDUAL ASPIRATED. CERNA CATH PATENT DRAINING CLEAR YELLOW URINE WITH 1800cc OUTPUT. NO COMPLAINTS OF PAIN/DISCOMFORT REPORTED OF THE TIME. BED LOW AND LOCKED ON SEMI FOWLERS POSITION. CALL LIGHT IN REACH. WILL ENDORSE TO MORNING SHIFT FOR ROYA.
[2019-08-03 06:47] LABS: BASOPHILS % (AUTO) 0.4 % (0.0-2.0); EOSINOPHILS % (AUTO) 3.9 % (0.0-6.0); HEMATOCRIT 27 % (33-45); HEMOGLOBIN 8.4 g/dL (11.5-14.8); LYMPHOCYTES # (AUTO) 1.4 /CMM (0.8-4.8); LYMPHOCYTES % (AUTO) 22.8 % (20.0-44.0); MEAN CORPUSCULAR HGB CONC 31 g/dl (31.0-36.0); MEAN CORPUSCULAR VOLUME 73 fL (82-100); MONOCYTES # (AUTO) 0.7 /CMM (0.1-1.30); MONOCYTES % (AUTO) 11.3 % (2.0-12.0); NEUTROPHILS # (AUTO) 3.7 /CMM (1.8-8.9); NEUTROPHILS % (AUTO) 61.6 % (43.0-81.0); PLATELET COUNT (AUTO) 347 /CMM (150-450); RED BLOOD CELL COUNT(AUTO) 3.71 MIL/uL (4.0-5.2); WHITE BLOOD COUNT (AUTO) 5.9 K/uL (4.3-11.0)
[2019-08-03 07:21] LABS: CALCIUM, SERUM 8.9 mg/dL (8.5-10.1); CREATININE 0.3 mg/dL (0.6-1.3); POTASSIUM 4.4 mmol/L (3.5-5.1)
--- NOTE | 2019-08-03 07:25 | NUR ---
M/S RN NOTES PATIENT RESTING IN BED, NO RESPIRATORY DISTRESS, 02 AT 1LPM VIA TRACH MASK. PATIENT IN NO C/O PAIN AT THIS TIME. PATIENT'S IV ACCESS SITE INTACT AND PATENT ON THE LEFT HAND. GT INTACT AND PATENT. F/C DRAINING YELLOW,CLOUDY URINE. PATIENT'S NEEDS ATTENDED. BED ON LOWEST LOCKED POSITION, CALL LIGHT WITHIN REACH. WILL CONTINUE TO MONITOR.
[2019-08-03] MEDS: BUDESONIDE RESPULE INH 0.5 MG/2 ML AMPUL.NEB IH SCH ×2 (07:30→19:30)
[2019-08-03] MEDS: ALBUTEROL FS 2.5 MG/3 ML VIAL.NEB NEB SCH ×3 (07:35→23:30)
[2019-08-03 08:00] VITALS: BP 100/61
[2019-08-03] MEDS: ENSURE ENLIVE CHOC 237 ML CAN PO SCH ×3 (08:02→18:03)
[2019-08-03] MEDS: MUPIROCIN OINT 2% 22 GM TUBE SCH ×2 (09:00→21:14)
[2019-08-03] MEDS: DOCUSATE SODIUM LIQ 100 MG/10 ML UDC GT SCH (09:56)
[2019-08-03] MEDS: BACLOFEN (10 MG) 10 MG TABLET PO SCH ×3 (09:57→18:03)
[2019-08-03] MEDS: FERROUS SULFATE UDC 300 MG/5 ML UDC GT SCH (09:57)
[2019-08-03] MEDS: PANTOPRAZOLE 40 MG/PACK PACK GT SCH (09:57)
[2019-08-03] MEDS: ZINC SULFATE 220 MG CAPSULE GT SCH ×2 (09:57→18:03)
[2019-08-03] MEDS: MULTIVITAMINS,THERAGRAN 1 UDTAB TABLET GT SCH (09:57)
[2019-08-03] MEDS: ASCORBIC ACID 500 MG TABLET GT SCH ×2 (09:57→20:28)
[2019-08-03] MEDS: DULOXETINE HCL 30 MG CAPSULE.DR GT SCH ×2 (09:57→20:28)
[2019-08-03] MEDS: FLUDROCORTISONE 0.1 MG TABLET GT SCH ×2 (09:57→18:03)
[2019-08-03] MEDS: ENOXAPARIN SODIUM 40 MG/0.4 ML DISP.SYRIN SQ SCH (09:58)
[2019-08-03] MEDS: DAKINS QUARTER STRENGTH (0.125%) 480 ML BOTTLE TOP SCH (10:16)
[2019-08-03] MEDS: THERAHONEY GEL 1.5 OZ TUBE TP SCH (10:17)
--- NOTE | 2019-08-03 11:42 | NUR ---
M/S RN NOTES INSERTED A NEW F/C MONGOLIAN #18, WITH 10CC BALLOON. DRAINING CLEAR, YELLOW URINE. PROCEDURE TOLERATED WELL.
[2019-08-03 16:00] VITALS: BP 92/56
--- NOTE | 2019-08-03 19:10 | NUR ---
M/S RN NOTES PATIENT AWAKE IN BED, NO RESPIRATORY DISTRESS, NO C/O PAIN AT THIS TIME. PATIENT'S IV ACCESS SITE INTACT AND PATENT. PATIENT'S NEEDS ATTENDED. PATIENT REPOSITIONED EVERY TWO HOURS. BED ON LOWEST LOCKED POSITION, CALL LIGHT WITHIN REACH. WILL ENDORSE TO ONCOMING NURSE.
[2019-08-03 19:30] VITALS: BP 107/70
--- NOTE | 2019-08-03 19:35 | NUR ---
MS RN NOTES PATIENT IN BED AWAKE, ALERT AND ORIENTED X 4. BREATHING EVEN AND UNLABORED, ON TRACH COLLAR 1L. DENIES ACUTE PAIN, NO ACUTE RESPIRATORY DISTRESS. IV ON LEFT FOREARM 22G SALINE LOCKED, CLEAN DRY AND INTACT. SHOWS NO SIGNS OF REDNESS, NO INFILTRATION. GT IS INTACT AND PATENT. F/C IS DRAINING YELLOW, CLOUDY URINE. SAFETY PRECAUTION IN PLACE. BED IN LOWEST POSITION, LOCKED, AND CALL LIGHT KEPT WITH REACH. WILL CONTINUE TO MONITOR.
--- NOTE | 2019-08-03 19:46 | NUR ---
PT REFUSED TX AT THIS TIME. NO DISTRESS NOTED. Addendum: 08/03/19 at 1946 by CARON JENSEN RT Amended: Links added.
[2019-08-03 20:00] VITALS: BP 107/70
[2019-08-03] MEDS: SERTRALINE HCL 50 MG TABLET PO SCH (21:49)
--- NOTE | 2019-08-03 21:49 | NUR ---
MS RN NOTES PATIENT REFUSED ZOLOFT ON 2200. DOCUMENTED IN EMAR.
[2019-08-04] MEDS: VANCOMYCIN 0.75 GM in IV D5W 250 ML IV SCH ×2 (03:50→15:52)
[2019-08-04] MEDS: METHADONE HCL 10 MG TABLET GT SCH ×3 (04:42→21:53)
--- NOTE | 2019-08-04 06:31 | NUR ---
MS RN NOTES PATIENT ASLEEP IN BED, ALERT AND ORIENTED X 4. BREATHING EVEN AND UNLABORED, ON TRACH COLLAR 1L. DENIES ACUTE PAIN, NO ACUTE RESPIRATORY DISTRESS. IV ON LEFT FOREARM 22G SALINE LOCKED, CLEAN DRY AND INTACT. SHOWS NO SIGNS OF REDNESS, NO INFILTRATION. GT IS INTACT AND PATENT. F/C IS DRAINING YELLOW, CLOUDY URINE. ALL DUE MEDICATION GIVEN. SAFETY PRECAUTION IN PLACE. BED IN LOWEST POSITION, LOCKED, AND CALL LIGHT KEPT WITH REACH. WILL ENDORSE TO ONCOMING NURSE.
[2019-08-04 06:44] LABS: CALCIUM, SERUM 9.3 mg/dL (8.5-10.1); CREATININE 0.4 mg/dL (0.6-1.3); POTASSIUM 4.3 mmol/L (3.5-5.1)
[2019-08-04] MEDS: BUDESONIDE RESPULE INH 0.5 MG/2 ML AMPUL.NEB IH SCH ×2 (07:30→19:30)
[2019-08-04] MEDS: ALBUTEROL FS 2.5 MG/3 ML VIAL.NEB NEB SCH ×3 (07:35→23:30)
[2019-08-04 08:00] VITALS: BP 86/58
[2019-08-04] MEDS: GENTAMICIN 450 MG in IV D5W 100 ML IV SCH (08:35)
[2019-08-04] MEDS: MULTIVITAMINS,THERAGRAN 1 UDTAB TABLET GT SCH (08:36)
[2019-08-04] MEDS: PANTOPRAZOLE 40 MG/PACK PACK GT SCH (08:36)
[2019-08-04] MEDS: DULOXETINE HCL 30 MG CAPSULE.DR GT SCH ×2 (08:36→21:52)
[2019-08-04] MEDS: ASCORBIC ACID 500 MG TABLET GT SCH ×2 (08:36→21:52)
[2019-08-04] MEDS: DOCUSATE SODIUM LIQ 100 MG/10 ML UDC GT SCH (08:36)
[2019-08-04] MEDS: ZINC SULFATE 220 MG CAPSULE GT SCH ×2 (08:36→15:46)
[2019-08-04] MEDS: FLUDROCORTISONE 0.1 MG TABLET GT SCH ×2 (08:36→15:47)
[2019-08-04] MEDS: BACLOFEN (10 MG) 10 MG TABLET PO SCH ×3 (08:36→15:50)
[2019-08-04] MEDS: ENOXAPARIN SODIUM 40 MG/0.4 ML DISP.SYRIN SQ SCH (08:38)
[2019-08-04] MEDS: ENSURE ENLIVE CHOC 237 ML CAN PO SCH ×3 (08:39→15:47)
[2019-08-04] MEDS: THERAHONEY GEL 1.5 OZ TUBE TP SCH (08:39)
[2019-08-04] MEDS: DAKINS QUARTER STRENGTH (0.125%) 480 ML BOTTLE TOP SCH (08:39)
[2019-08-04] MEDS: MUPIROCIN OINT 2% 22 GM TUBE SCH ×2 (08:39→21:54)
--- NOTE | 2019-08-04 09:29 | NUR ---
alert, oriented, appropriate, feeder, appetite 100% , very clear of what she wants to get done for her. no complaint of any discomfort at this time.
[2019-08-04] MEDS: FERROUS SULFATE UDC 300 MG/5 ML UDC GT SCH (12:37)
[2019-08-04 16:00] VITALS: BP 73/44
[2019-08-04] MEDS: ACETAMINOPHEN 650 MG/20.3 ML UDC GT PRN (18:23)
--- NOTE | 2019-08-04 19:10 | NUR ---
RN MS OPENING NOTES RECEIVED PATIENT IN BED AWAKE ALERT AND ORIENTED X4, TRACH SITE INTACT NO SOB PRESENT, RESPIRATIONS EVEN AND UNLABORED WITH EQUAL RISE AND FALL OF CHEST, ABLE TO VERBALIZE NEEDS, CERNA CATHETER INTACT AND DRAINING, GTUBE SITE INTACT, IV SITE TO LEFT FA #22 G INTACT AND PATENT,SL, NO REDNESS, NO INFILTRATION PRESENT, AT THIS TIME DENIES ANY PAIN OR DISCOMFORT, HEAD OF BED ELEVATED FOR ASPIRATION PRECAUTIONS, ORIENTED TO STAFF AND CALL LIGHT AND KEPT WITHIN REACH, SAFETY PRECAUTIONS IN PLACE, LOW BED AND LOCKED, ALL NEEDS ATTENDED AT THIS TIME, WILL CONTINUE TO MONITOR AND ATTEND TO NEEDS.
[2019-08-04 19:56] VITALS: BP 84/44
[2019-08-04 20:00] VITALS: BP 84/44
--- NOTE | 2019-08-04 20:00 | NUR ---
RN MS NOTES BLOOD PRESSURE ASSESSED 84/44, 103 PER PATIENT BLOOD PRESSURE NORMAL TRENDS ARE SBP 80 TO 90'S. PATIENT ASYMPTOMATIC, WILL CONTINUE TO MONITOR FOR ANY CHANGES.
[2019-08-04] MEDS: SERTRALINE HCL 50 MG TABLET PO SCH (21:56)
--- NOTE | 2019-08-04 22:00 | NUR ---
RN MS NOTES PATIENT REFUSED ZOLOFT.
--- NOTE | 2019-08-05 02:40 | NUR ---
RN MS NOTES BLOOD PRESSURE REASSESSED NOTED TRENDING 79/49,HR 61. ASYMPTOMATIC, PATIENT STATES " BP USUALLY TREND ON THE LOWER SIDE BETWEEN 80-90S SBP" CONTACTED [facility] TO NOTIFY AWAITING CALL BACK. PATIENT REPOSITIONED, WILL REASSESS B/P
--- NOTE | 2019-08-05 03:03 | NUR ---
RN MS NOTES EPIC PAGED TO NOTIFY OF BLOOD PRESSURE READING AWAITING CALL BACK.
--- NOTE | 2019-08-05 03:20 | NUR ---
RN MS NOTES EPIC PAGED TO NOTIFY OF BLOOD PRESSURE AWAITING CALL BACK. UPON REASSESSMENT OF BLOOD PRESSURE NOTED BP INCREASE LEFT ARM 85/51, 64 HIGHEST B/P ON RIGHT ARM 94/57,73 WILL CONTINUE TO MONITOR.ASYMPTOMATIC
[2019-08-05] MEDS: VANCOMYCIN 0.75 GM in IV D5W 250 ML IV SCH (03:39)
--- NOTE | 2019-08-05 03:56 | NUR ---
RN MS NOTES RECEIVED CALL BACK FROM DR. DOS SANTOS MADE AWARE OF B/P TRENDS NO NEW ORDERS. WILL CONTINUE TO MONITOR.
[2019-08-05] MEDS: METHADONE HCL 10 MG TABLET GT SCH ×3 (05:07→20:51)
--- NOTE | 2019-08-05 06:31 | NUR ---
RN MS CLOSING NOTES PATIENT IN BED SLEEPING BUT EASILY AROUSABLE ALERT AND ORIENTED X4, TRACH SITE INTACT, TRACH COLLAR INTACT NO SOB PRESENT, RESPIRATIONS EVEN AND UNLABORED WITH EQUAL RISE AND FALL OF CHEST, ABLE TO VERBALIZE NEEDS, CERNA CATHETER INTACT AND DRAINING, GTUBE SITE INTACT, IV SITE TO LEFT FA #22 G INTACT AND PATENT,SL, NO REDNESS, NO INFILTRATION PRESENT, AT THIS TIME DENIES ANY PAIN OR DISCOMFORT, HEAD OF BED ELEVATED FOR ASPIRATION PRECAUTIONS, CALL LIGHT KEPT WITHIN REACH, SAFETY PRECAUTIONS IN PLACE, LOW BED AND LOCKED, ALL NEEDS ATTENDED AT THIS TIME, WILL CONTINUE TO MONITOR AND ATTEND TO NEEDS. NO FURTHER CHANGE IN BLOOD PRESSURE NOTED, REPOSITIONED AND OFFLOADED Q2HR ALL NEEDS ATTENDED WILL CONTINUE TO MONITOR AND ENDORSE TO NEXT SHIFT.
[2019-08-05 06:42] LABS: BASOPHILS % (AUTO) 0.3 % (0.0-2.0); EOSINOPHILS % (AUTO) 4.4 % (0.0-6.0); HEMATOCRIT 25 % (33-45); HEMOGLOBIN 7.8 g/dL (11.5-14.8); LYMPHOCYTES # (AUTO) 1.7 /CMM (0.8-4.8); LYMPHOCYTES % (AUTO) 28.2 % (20.0-44.0); MEAN CORPUSCULAR HGB CONC 32 g/dl (31.0-36.0); MEAN CORPUSCULAR VOLUME 72 fL (82-100); MONOCYTES # (AUTO) 0.7 /CMM (0.1-1.30); MONOCYTES % (AUTO) 11.7 % (2.0-12.0); NEUTROPHILS # (AUTO) 3.4 /CMM (1.8-8.9); NEUTROPHILS % (AUTO) 55.4 % (43.0-81.0); PLATELET COUNT (AUTO) 288 /CMM (150-450); RED BLOOD CELL COUNT(AUTO) 3.45 MIL/uL (4.0-5.2); WHITE BLOOD COUNT (AUTO) 6.2 K/uL (4.3-11.0)
[2019-08-05 07:04] LABS: CALCIUM, SERUM 9.1 mg/dL (8.5-10.1); CREATININE 0.3 mg/dL (0.6-1.3); MAGNESIUM 1.9 mg/dL (1.8-2.4); PHOSPHORUS 4.3 mg/dL (2.5-4.9); POTASSIUM 4.2 mmol/L (3.5-5.1)
[2019-08-05] MEDS: BUDESONIDE RESPULE INH 0.5 MG/2 ML AMPUL.NEB IH SCH ×2 (07:30→19:30)
[2019-08-05] MEDS: ALBUTEROL FS 2.5 MG/3 ML VIAL.NEB NEB SCH ×2 (07:35→15:30)
--- NOTE | 2019-08-05 07:47 | NUR ---
MS RN OPENING NOTES Received Patient asleep and resting in bed. A/O x 4. Patient in stable condition with no acute distress. Breathing even and unlabored on 1LPM via trachea. No signs and symptoms of pain at this time. 22g PIV on LFA clean, intact, patent and flushing well. Fiore clean, intact, and patent with clear yellow output noted. GTube in place and patent. Isolation precautions in place. Safety precautions in place. Bed locked and set to lowest position with side rails x 2 up. All needs rendered at this time. Call light within reach. Will continue to monitor.
[2019-08-05 08:00] VITALS: BP 105/56
[2019-08-05] MEDS: ENSURE ENLIVE CHOC 237 ML CAN PO SCH ×3 (08:42→16:35)
[2019-08-05] MEDS: ZINC SULFATE 220 MG CAPSULE GT SCH ×2 (08:43→16:35)
[2019-08-05] MEDS: DOCUSATE SODIUM LIQ 100 MG/10 ML UDC GT SCH (08:43)
[2019-08-05] MEDS: BACLOFEN (10 MG) 10 MG TABLET PO SCH ×3 (08:43→16:34)
[2019-08-05] MEDS: FLUDROCORTISONE 0.1 MG TABLET GT SCH ×2 (08:43→16:35)
[2019-08-05] MEDS: MULTIVITAMINS,THERAGRAN 1 UDTAB TABLET GT SCH (08:43)
[2019-08-05] MEDS: PANTOPRAZOLE 40 MG/PACK PACK GT SCH (08:43)
[2019-08-05] MEDS: FERROUS SULFATE UDC 300 MG/5 ML UDC GT SCH (08:43)
[2019-08-05] MEDS: ASCORBIC ACID 500 MG TABLET GT SCH ×2 (08:43→20:51)
[2019-08-05] MEDS: DULOXETINE HCL 30 MG CAPSULE.DR GT SCH ×2 (08:43→20:51)
[2019-08-05] MEDS: MUPIROCIN OINT 2% 22 GM TUBE SCH ×2 (08:45→20:52)
[2019-08-05] MEDS: DAKINS QUARTER STRENGTH (0.125%) 480 ML BOTTLE TOP SCH (08:46)
[2019-08-05] MEDS: THERAHONEY GEL 1.5 OZ TUBE TP SCH (08:46)
[2019-08-05] MEDS: ENOXAPARIN SODIUM 40 MG/0.4 ML DISP.SYRIN SQ SCH (08:50)
[2019-08-05] MEDS: ACETAMINOPHEN 650 MG/20.3 ML UDC GT PRN ×2 (08:58→16:38)
[2019-08-05 08:59] LABS: EOSINOPHILS % (MANUAL) 4 % (0-4); LYMPHOCYTES % (MANUAL) 23 % (16-48); MONOCYTES % (MANUAL) 14 % (0-11.0); NEUTROPHILS % (MANUAL) 59 (42-76)
[2019-08-05] MEDS ORDERED: VANC1FRO2 IV (14:09)
[2019-08-05] MEDS ORDERED: RXGEN XX (14:09)
[2019-08-05] MEDS ORDERED: GENT40VI2 IM/IV/SC (14:09)
[2019-08-05] MEDS ORDERED: RXVAN XX (14:09)
[2019-08-05 16:00] VITALS: BP 107/62
[2019-08-05] MEDS ORDERED: VANCOMYCIN 1 GM in IV D5W 250 ML IV SCH (16:00)
--- NOTE | 2019-08-05 16:50 | NUR ---
MS RN NOTES Obtained consent for PICC Line Insertion at this time. Explained risks and benefits to Patient. Patient verbalized understanding and agreed for PICC Line Insertion. Patient in stable condition. Will continue to monitor.
--- NOTE | 2019-08-05 19:25 | NUR ---
RN OPEN NOTES RECEIVED PATIENT RESTING IN BED, EASILY AROUSABLE. A/O X4. NO SIGNS OF DISTRESS OR DISCOMFORT. BREATHING EVEN AND UNLABORED. HAS TRACH COLLAR ON 1LPM, TOLERATING WELL. HAS PIERRE PICC AND IV ACCESS IN L FA, PATENT AND INTACT, NO SIGNS OF REDNESS OR INFILTRATION. HAS GTUBE PATENT AND INTACT. F/C INTACT, DRAINING CLEAR YELLOW FLUID. BED IN LOW LOCKED POSITION WITH SIDE RAILS X2. HOB ELEVATED. CALL LIGHT WITHIN REACH. WILL CONTINUE TO MONITOR. PT CURRENTLY AWAITING DISCHARGE PER AM SHIFT SCHEDULED FOR 2129 PICKUP.
--- NOTE | 2019-08-05 19:46 | NUR ---
MS RN CLOSING NOTES Patient resting and watching TV in bed. A/O x 4. Patient in stable condition with no acute distress. Breathing even and unlabored on 1LPM via trachea. Denies pain at this time. 22g PIV on LFA clean, intact, patent and flushing well. PIERRE PICC Line clean, intact and patent. Fiore clean, intact, and patent with clear yellow output noted. GTube in place and patent. Isolation precautions in place. Safety precautions in place. Bed locked and set to lowest position with side rails x 2 up. Medication reconciliation and discharge orders reviewed and explained to Patient. All needs rendered at this time. Call light within reach. Will endorse plan of care to oncoming shift.
[2019-08-05 20:00] VITALS: BP 92/50
[2019-08-05] MEDS: GENTAMICIN 450 MG in IV D5W 100 ML IV SCH (20:45)
[2019-08-05] MEDS: SERTRALINE HCL 50 MG TABLET PO SCH (22:00)
--- NOTE | 2019-08-05 22:00 | NUR ---
RN NOTES PATIENT REFUSED ZOLOFT 150MG DOSE X3. PATIENT ADVISED OF RISK AND BENEFITS AND PATIENT VERBALIZE UNDERSTANDING. WILL CONTINUE TO MONITOR.
--- NOTE | 2019-08-05 22:43 | NUR ---
RN CLOSING NOTES PATIENT DISCHARGED IN STABLE CONDITION VIA AMBULANZ WITH EMT AT BEDSIDE. A/O X4. NO SIGNS OF DISTRESS OR DISCOMFORT. BREATHING EVEN AND UNLABORED. HAS TRACH COLLAR ON 1LPM. HAS PIERRE PICC, PATENT AND INTACT, NO SIGNS OF REDNESS OR INFILTRATION. HAS GTUBE PATENT AND INTACT, CLAMPED. F/C INTACT, DRAINING CLEAR YELLOW FLUID. PATIENT VERBALIZE UNDERSTANDING OF DISCHARGE EDUCATION AND INSTRUCTIONS. ALL PHOTOS TAKEN AND PLACED IN PATIENT CHART. PATIENT BELONGINGS WITH PATIENT. DUE MEDICATIONS WERE GIVEN.
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
== END 2019-08-05 22:40 | disposition home or self-care (01) | DRG 364 ==
LOC: ER 14:21 → MED 17:01
PROVIDERS: ADMIT Student in an Organized Health Care Education/Training Program; ATTEND Student in an Organized Health Care Education/Training Program
DX: L03.312 Cellulitis of back [any part except buttock and flank] (principal); G82.54 Quadriplegia, C5-C7 incomplete; Z99.11 Dependence on respirator [ventilator] status; J96.10 Chronic respiratory failure, unspecified whether with hypoxia or hypercapnia; L89.154 Pressure ulcer of sacral region, stage 4; L89.210 Pressure ulcer of right hip, unstageable; L89.626 Pressure-induced deep tissue damage of left heel; L89.220 Pressure ulcer of left hip, unstageable; L89.513 Pressure ulcer of right ankle, stage 3; Z93.0 Tracheostomy status; D68.59 Other primary thrombophilia; R13.10 Dysphagia, unspecified; J45.909 Unspecified asthma, uncomplicated; F41.9 Anxiety disorder, unspecified; Z93.1 Gastrostomy status; D50.9 Iron deficiency anemia, unspecified; Z74.01 Bed confinement status; Z87.01 Personal history of pneumonia (recurrent); Z87.81 Personal history of (healed) traumatic fracture; Z88.6 Allergy status to analgesic agent; Z88.5 Allergy status to narcotic agent; Z88.8 Allergy status to other drugs, medicaments and biological substances; L89.616 Pressure-induced deep tissue damage of right heel; Z79.899 Other long term (current) drug therapy; Z79.01 Long term (current) use of anticoagulants; Z79.51 Long term (current) use of inhaled steroids; M86.9 Osteomyelitis, unspecified; L97.319 Non-pressure chronic ulcer of right ankle with unspecified severity; V89.2XXS Person injured in unspecified motor-vehicle accident, traffic, sequela
CPT/HCPCS: 31720; 36415; 36569; 71045-TC; 71250-TC; 73600-TC; 80048-TC; 80061-TC; 80170-TC; 80202-TC; 81000-TC; 83735-TC; 84100-TC; 84443-TC; 84702-TC; 84703-TC; 85025-TC; 86850-TC; 86921-TC; 87040-TC; 87070-TC; 87081-TC; 87086-TC; 87186-TC; 92611-TC; 94799-TC; 97530-TC; A6253; A6403; A7526; C1751; G0378; J1580; J1650; J2543; J3370; J3490; J7040; J7050; J7060; P9016-BL